=== PATIENT | male | born 1950 | race Caucasian/White ===

== ENCOUNTER 2024-10-03 11:27 | Outpatient (CLI) | payer MEDICARE, SELFPAY ==
--- NOTE | ~2024-10-03 | CT_ITS ---
EXAMINATION: CT lumbar spine wo con DATE: 10/03/2024 11:59 INDICATION: Lumbar radiculopathy. TECHNIQUE: Computed tomography (CT) of the lumbar spine was performed without intravenous contrast. A utomated exposure control and iterative reconstruction technique were employed. The dose-length produ ct was 690.44 mGy-cm. COMPARISON: None FINDINGS: There is 11 degrees levoscoliosis of lumbar spine. There is a chronic compression fracture of L5 with less than 1/5 loss of height. There is mildly decreased disc height at L3-L4 and L4-L5 and severely decreased disc height at L5-S1. There is interbody fusion at L5-S1. The following disc leve ls are specifically discussed: L1-L2: The disc does not extend beyond the endplate margin. There is moderate right and mild left fac et joint osteoarthritis. There is no neural foraminal stenosis. There is no central canal stenosis. L2-L3: The disc is bulging. There is severe bilateral facet joint osteoarthritis. There is mild bilat eral neural foraminal stenosis. There is mild central canal stenosis. L3-L4: The disc is bulging. There is severe bilateral facet joint osteoarthritis. There is mild bilat eral neural foraminal stenosis. There is mild central canal stenosis. L4-L5: The disc is bulging. There is severe bilateral facet joint osteoarthritis. There is mild bilat eral neural foraminal stenosis. There is mild central canal stenosis. L5-S1: The disc is bulging. There is severe bilateral facet joint osteoarthritis. There is mild bilat eral neural foraminal stenosis. There is mild central canal stenosis. IMPRESSION: 1. Mild lumbar spondylosis. 2. Lumbar levoscoliosis. Reviewed, dictated and finalized at location A. ICAL DATA ASSISTANT
--- NOTE | ~2024-10-03 | XR_ITS ---
XR hip RT min 2V Ordering provider: Shaneka Barajas, MECHANICAL PENCILS ASSEMBLER-C History: . No injury right hip pain for 5 weeks . Comparison: None. FINDINGS: BONES: No acute fracture or dislocation. HIP JOINT SPACES: Normal. SACROILIAC JOINT SPACES/LUMBAR SPINE: The sacroiliac joint spaces shows sacroiliitis. Mild degenerati ve changes of the visualized lower lumbar spine. PUBIC SYMPHYSIS: Normal. SOFT TISSUES: Normal. IMPRESSION: No acute osseous abnormality pelvis and right hip. Reviewed, dictated and finalized at location A. TTER
== END 2024-10-03 11:28 | disposition home or self-care (01) ==
LOC: MICIMG 11:28
PROVIDERS: PCP Nurse Practitioner Family; Visit Provider Nurse Practitioner Family
DX: M43.06 Spondylolysis, lumbar region (principal); M41.86 Other forms of scoliosis, lumbar region; M25.551 Pain in right hip
CPT/HCPCS: 72131; 73502

== ENCOUNTER 2025-01-19 12:08 | Outpatient (CLI) | payer MEDICARE, SELFPAY ==
[2025-01-19 12:59] LABS: Basophils Absolute Auto 0.1 K/mm3 (0.0-0.1); Basophils Percent Auto 0.8 % (0.2-1.2); Eosinophils Absolute Auto 0.5 K/mm3 (0-0.3); Eosinophils Percent Auto 7.1 % (0-4.4); Hematocrit 39.6 % (42.0-52.0); Hemoglobin 12.9 g/dL (14.0-18.0); Immature Granulocyte Absolute 0.03 K/mm3 (0.00-0.031); Immature Granulocyte Percent A 0.4 % (0-0.5); Lymphocytes Absolute Auto 2.15 K/mm3 (0.9-3.2); Lymphocytes Percent Auto 29.4 % (18.3-44.2); Mean Corpuscular HGB Conc 32.6 g/dl (32-36); Mean Corpuscular Volume 98.3 fl (80-100); Mean Platelet Volume 10.7 fl (7.4-10.4); Monocytes Absolute Auto 0.8 K/mm3 (0.1-0.6); Monocytes Percent Auto 10.3 % (2.6-8.5); Neutrophils Absolute Auto 3.8 K/mm3 (1.3-6.7); Platelet Count Result 163 k/mm3 (150-375); Red Blood Count 4.03 M/mm3 (4.6-6.20); Red Cell Distribution Width 15.3 % (11.5-14.5); White Blood Count 7.3 K/mm3 (4.5-10.0)
[2025-01-19 13:08] LABS: Add Urine Microscopic? NO; Appearance Urine Clear (Clear); Bilirubin Urine Negative (Negative); Blood Urine Negative (Negative); Color Urine Yellow (Yellow); Glucose Urine UA 3+ mg/dL (Negative); Ketones Urine Negative (Negative); Leukocyte Esterase Ur Negative LEU/UL (Negative); Nitrate Urine Negative (Negative); Protein Urine Negative (Negative); Specific Grav Ur 1.021 (1.001-1.035); Urobilinogen Urine 0.2 mg/dL (<2.0); pH Urine 5.5 (5.0-9.0)
[2025-01-19 13:09] LABS: Hemoglobin A1C 4.9 % (<5.7)
[2025-01-19 13:17] LABS: Alanine Aminotransferase 14 U/L (6-50); Alkaline Phosphatase 62 U/L (38-126); Anion Gap 6 mmol/L (4-12); Aspartate Amino Transferase 13 U/L (17-59); Bilirubin,Total 0.8 mg/dL (0.2-1.3); Blood Urea Nitrogen 37 mg/dL (9-20); Calcium 9.7 mg/dL (8.4-10.2); Carbon Dioxide 38 mmol/L (22-30); Chloride 95 mmol/L (98-107); Estimated Glomerular Filt Rate 25; Glucose 90 mg/dL (65-110); Magnesium 1.3 mg/dL (1.6-2.3); Potassium 3.7 mmol/L (3.4-5.0); Sodium 139 mmol/L (137-145)
[2025-01-19 13:26] LABS: Parathyroid Intact 18.4 pg/mL (14.5-75.2)
[2025-01-19 13:26] LABS: NT Pro B Type Natriuretic Pept 520 pg/mL (19.9-100)
[2025-01-19 13:39] LABS: Vitamin D 25 Hydroxy 77.6 ng/mL
[2025-01-19 13:40] LABS: Creatinine Urine 164.3 mg/dL
[2025-01-19 13:45] LABS: MALB Creatinine Ratio 3.9 mg/g (0-30); Microalbumin Urine Random 6.4 mg/L (0-16.7)
[2025-01-19 13:48] LABS: Prostate Specific Antigen 11.6 ng/mL (< OR = 4.0)
--- OUTSIDE RECORDS SUMMARY | 2025-01-19 13:55 | XMS_ITS | Patient Health Record ---
Author Organization [facility] Address [address] [facility] [address] [place] [address] Care Team Providers Care Heating Engineer Name Role Phone Cooper Pena Unavailable [phone] REASON FOR REFERRAL No Information MEDICATIONS Medication SIG (Take, Route, Fr equency, Duration) Notes Start Date End Date Status Calcitriol 0.25 MCG TAKE 1 CAPSULE BY [place] [facility] TWICE DAILY for 90 Active Allopurinol 300 MG 2 tablet Orally Once a day for 90 days 04/26/2024 04/21/2025 Active PROBLEMS Problem Type ICD Code Onset Dates Problem Status W/U Status Risk SNOMED Code Notes Problem Anemia, unspecified (D64.9) Active confirmed Anemia (751296559) Problem Hypothyroidism, unspecified (E03.9) Active confirmed Hypothyroidism (76026894) Problem Secondary hyperparathyroid ism, not elsewhere classified (E21.1) Active confirmed Secondary hyperparathyroidism (88412629) Problem Vitamin D deficiency, unspecified (E55.9) Active confirmed Vitamin D defic iency (77745698) Problem Heart failure, unspecified (I50.9) Active confirmed Heart failure (06660538) Problem Chronic kidney disease, stage 4 (severe) (N18.4) Active confirmed Chronic kid sergei disease stage 4 (195337979) Problem Renal osteodystrophy (N25.0) Active confirmed Renal osteodyst rophy (98570493) Problem Acquired absence of kidney (Z90.5) Active confirmed Absent kidney (433390336) Problem Essential hypertension (I10) Active confirmed Essential hypertension (70637779) Problem Chronic kidney disease, stage 3a (N18.31) Active confirmed Chronic kidney disease stage 3A (disorder) (272976717) Encounters Encounter Location Date Provider Diagnosis [facility] [address] [facility] [address] [place] [address] 02/05/2024 Cooper Pena Chronic kidney disea se, stage 3a N18.31 ; Anemia, unspecified D64.9 ; Heart failure, unspecified I50.9 ; Renal osteodystrophy N25.0 ; Secondary hyperparathyroidism, not elsewhere classified E21.1 and Vitamin D deficiency, unspecified E55.9 [facility] [address] [place] [address] 04/22/2024 Cooper Pena Chronic kidney disea se, stage 3a N18.31 ; Anemia, unspecified D64.9 ; Heart failure, unspecified I50.9 ; Renal osteodystrophy N25.0 ; Secondary hyperparathyroidism, not elsewhere classified E21.1 and Vitamin D deficiency, unspecified E55.9 [facility] [address] [place] [address] 07/08/2024 Cooper Pena Anemia, unspecified D64.9 ; Essential hypertension I10 ; Hypothyroidism, unspecified E03.9 ; Renal osteodystrophy N25.0 ; Vitamin D deficiency, unspecified E55.9 ; Heart failure, unspecified I50.9 ; Secondary hyperparathyroidism, not elsewhere classified E21.1 and Chronic kidney disease, stage 4 (severe) N18.4 [facility] [address] [place] [address] 08/26/2024 Cooper Pena Anemia, unspecified D64.9 ; Chronic kidney disease, stage 4 (severe) N18.4 ; Heart failure, unspecified I50.9 ; Renal osteodystrophy N25.0 ; Secondary hyperparathyroidism, not elsewhere classified E21.1 ; Vitamin D deficiency, unspecified E55.9 ; Essential hypertension I10 and Hypothyroidism, unspecified E03.9 [facility] [address] [place] [address] 11/25/2024 Cooper Pena Chronic kidney disea se, stage 4 (severe) N18.4 ; Elevated prostate specific antigen (PSA) R97.20 ; Essential hypertension I10 ; Renal osteodystrophy N25.0 ; Secondary hyperparathyroidism, not elsewhere classified E21.1 ; Abnormal results of thyroid function studies R94.6 and Acquired absence of kidney Z90.5 [facility] [address] [place] [address] 04/22/2024 Cooper Pena [place] [facility] [address] [place] [address] 04/26/2024 Cooper Pena ASSESSMENTS Encounter Date Diagnosis Assessment Notes Treatment Notes Treatment Clinical Notes Section Notes 02/05/2024 Chronic kidney disease, stage 3a (ICD-10 - N18.31) 04/22/2024 Chronic kidney disease, stage 3a (ICD-10 - N18.31) 07/08/2024 Anemia, unspecified (ICD-10 - D64.9) 08/26/2024 Anemia, unspecified (ICD-10 - D64.9) 08/26/2024 Chronic kidney disease, stage 4 (severe) (ICD-10 - N18.4) 11/25/2024 Chronic kidney disease, stage 4 (severe) (ICD-10 - N18.4) 11/25/2024 Elevated prostate specific antigen (PSA) (ICD-10 - R97.20) 11/25/2024 Essential hypertension (ICD-10 - I10) 08/26/2024 Heart failure, unspecified (ICD-10 - I50.9) 07/08/2024 Essential hypertension (ICD-10 - I10) 04/22/2024 Anemia, unspecified (ICD-10 - D64.9) 02/05/2024 Anemia, unspecified (ICD-10 - D64.9) 02/05/2024 Heart failure, unspecified (ICD-10 - I50.9) 07/08/2024 Hypothyroidism, unspecified (ICD-10 - E03.9) 04/22/2024 Heart failure, unspecified (ICD-10 - I50.9) 11/25/2024 Renal osteodystrophy (ICD-10 - N25.0) 08/26/2024 Renal osteodystrophy (ICD-10 - N25.0) 08/26/2024 Secondary hyperparathyroidism , not elsewhere classified (ICD-10 - E21.1) 11/25/2024 Secondary hyperparathyroidism , not elsewhere classified (ICD-10 - E21.1) 04/22/2024 Renal osteodystrophy (ICD-10 - N25.0) 07/08/2024 Renal osteodystrophy (ICD-10 - N25.0) 02/05/2024 Renal osteodystrophy (ICD-10 - N25.0) 02/05/2024 Secondary hyperparathyroidism , not elsewhere classified (ICD-10 - E21.1) 07/08/2024 Vitamin D deficiency, unspecified (ICD-10 - E55.9) 04/22/2024 Secondary hyperparathyroidism , not elsewhere classified (ICD-10 - E21.1) 08/26/2024 Vitamin D deficiency, unspecified (ICD-10 - E55.9) 11/25/2024 Abnormal results of thyroid function studies (ICD-10 - R94.6) 11/25/2024 Acquired absence of kidney (ICD-10 - Z90.5) 08/26/2024 Essential hypertension (ICD-10 - I10) 04/22/2024 Vitamin D deficiency, unspecified (ICD-10 - E55.9) 07/08/2024 Heart failure, unspecified (ICD-10 - I50.9) 02/05/2024 Vitamin D deficiency, unspecified (ICD-10 - E55.9) 08/26/2024 Hypothyroidism, unspecified (ICD-10 - E03.9) 07/08/2024 Secondary hyperparathyroidism , not elsewhere classified (ICD-10 - E21.1) 07/08/2024 Chronic kidney disease, stage 4 (severe) (ICD-10 - N18.4) PLAN OF TREATMENT Next Appt Details Provider Name:Cooper Pena , 01/27/2025 12:45:00 PM, [address] [facility] [address], [address],
--- OUTSIDE RECORDS SUMMARY | 2025-01-19 13:55 | XMS_ITS | Referral Summary ---
Author Organization [facility] Address [address] [place] [address] Care Team Providers Care Sewage Plant Attendant Name Role Phone Unavailable Primary Care Provider Unavailabl e Source Comments [facility],non-owned Affiliates and Associated Physician Practices is amultiple site organization consisting of ambulatory clinics and hospital sitesin [place], [place], [place] and [place]. This disclosure is being madepursuant to the Care Everywhere program and may not contain all information available regarding this patient. Last updated 18.[facility] [place] Active Problems Problem Noted Date Diagnosed Date Elevated prostate specific antigen (PSA) 016 Social History Tobacco Use Types Packs/Day Years Used Date Smoking Tobacco: Never Alcohol Use Standard Drinks/Week Comments Yes 0 (1 standard drink = 0.6 oz pur e alcohol) Sex and Gender Information Value Date Recorded Sex Assigned at Not on file Gender Identity Not on file Sexual Orientation Not on file Last Filed Vital Signs Vital Sign Reading Time Taken Comments Blood Pressure 145/95 05/26/2016 12:04 PM CDT Pulse 91 05/26/2016 12:04 PM CDT Temperature 36.7 C (98.1 F) 05/26/2016 12:04 PM CDT Respiratory Rate - - Oxygen Saturation 97% 05/26/2016 12:04 PM CDT Inhaled Oxygen Concentration - - Weight 88.3 kg (194 lb 9.6 oz) 05/26/2016 12:04 PM CDT Height 180.3 cm (5' 11 ) 05/26/2016 12:04 PM CDT Body Mass Index 27.14 05/26/2016 12:04 PM CDT Plan of Treatment Not on file
--- OUTSIDE RECORDS SUMMARY | 2025-01-19 13:55 | XMS_ITS ---
Author Organization [facility] Address [address] [place] [address] Care Team Providers Care Heavy Equipment Service Manager Name Role Phone JeanDianaCooper Unavailable [phone] MEDICATIONS Medication SIG (Take, Route, Fr equency, Duration) Notes Start Date End Date Status Calcitriol 0.25 MCG TAKE 1 CAPSULE BY [facility] TWICE DAILY for 90 Active Allopurinol 300 MG 2 tablet Orally Once a day for 90 days 04/26/2024 04/21/2025 Active Allopurinol 100 MG 1 tablet Orally Once a day for 90 day(s) 04/22/2024 01/17/2025 Active Encounters Encounter Location Date Provider Diagnosis [facility] [place] [facility] [address] [place] [address] 08/26/2024 Cooper Pena Anemia, unspecified D64.9 ; Chronic kidney disease, stage 4 (severe) N18.4 ; Heart failure, unspecified I50.9 ; Renal osteodystrophy N25.0 ; Secondary hyperparathyroidism, not elsewhere classified E21.1 ; Vitamin D deficiency, unspecified E55.9 ; Essential hypertension I10 and Hypothyroidism, unspecified E03.9 ASSESSMENTS Encounter Date Diagnosis Assessment Notes Treatment [...] I10) 08/26/2024 Hypothyroidism, unspecified (ICD-10 - E03.9) PLAN OF TREATMENT Next Appt Details Provider Name:Cooper Jean , 01/27/2025 12:45:00 PM, 20[address] [facility], [facility], [place], [place], [facility], Progress Notes * ZACK FONTENOTDOB: [birth year] (74 yo M)Acc No.[id number]:08/26/2024 Progress Notes Patient: ZACK FONTENOT Provider: MD PUSHPA, F.A.C.P, F.A.S.N. :1950 Age:73 Y Sex:Male Date:08/26/2024 Address:[address] [place] [address] Subjective: * Chief Complaints: * * Medical History: * Medications: Taking Allopurinol 100 MG Tablet 1 tablet Orally Once a day , stop date 01/17/2025, Taking Allopurinol 300 MG Tablet 2 tablet Orally Once a day , stop date 04/21/2025, Taking Calcitriol 0.25 MCG Capsule TAKE 1 CAPSULE BY MOUTH TWICE DAILY Objective: Assessment: * Assessment: 1. Chronic kidney disease, stage 4 (severe) - N18.4 (Primary) 2. Anemia, unspecified - D64.9 3. Heart failure, unspecified - I50.9 4. Renal osteodystrophy - N25.0 5. Secondary hyperparathyroidism, not elsewhere classified - E21.1 6. Vitamin D deficiency, unspecified - E55.9 7. Essential hypertension - I10 8. Hypothyroidism, unspecified - E03.9 Plan: * Treatment: * Billing Information: * Visit Code: 94556 Office Visit, Est Pt., Level 4. * Procedure Codes: * Sign off status: Pending * Provider: MD PUSHPA, Elise.Beulah.C.P, F.A.S.N. Date: 08/26/2024
--- OUTSIDE RECORDS SUMMARY | 2025-01-19 13:55 | XMS_ITS | Clinical Summary ---
Author Organization [facility] Address [address] [place] [address] Care Team Providers Care Drivers' Cash Clerk Name Role Phone Unavailable Primary Care Provider Unavailabl e Social History Tobacco Use Types Packs/Day Years Used Date Smoking Tobacco: Never Assessed Sex and Gender Information Value Date Recorded Sex Assigned at Not on file Legal Sex Male 7:18 PM CDT Gender Identity Not on file Sexual Orientation Not on file Plan of Treatment Health Maintenance Due Date Last Done Comments Colorectal Cancer Screening Colonoscopy (10 Years) 1950 Hepatitis C 1967 DTaP, Tdap and Td Vaccines ( 1 - Tdap) 1968 Zoster Vaccines (1 of 2) 1999 Pneumococcal Vaccine: 65+ Ye ars (1 of 1 - PCV) 2014 COVID-19 Vaccine ( - 2023-2 5 season) 2024 Influenza Adult (#1) 2024 RSV Immunization or 60+ Years (1 - 1-dose 75+ series) 2024 Meningococcal B Vaccine Aged Out No l onger eligible based on patient's age to complete this topic Meningococcal Vaccine Aged Out No jose cory eligible based on patient's age to complete this topic RSV Immunizations Under 20 Months Aged Out No longer eligible based on patient's age to complete this topic
--- OUTSIDE RECORDS SUMMARY | 2025-01-19 13:55 | XMS_ITS ---
Author Organization [facility] Address [address] [address] [place] [address] Care Team Providers Care Business Solutions Consultant Name Role Phone JeanDianaCooper Unavailable [phone] MEDICATIONS Medication SIG (Take, Route, Fr equency, Duration) Notes Start Date End Date Status Allopurinol 300 MG 2 tablet Orally Once a day for 90 days 04/26/2024 04/21/2025 Active Calcitriol 0.25 MCG TAKE 1 CAPSULE BY [facility] TWICE DAILY for 90 Active Allopurinol 100 MG 1 tablet Orally Once a day for 90 day(s) 04/22/2024 01/17/2025 Active PROBLEMS Problem Type ICD Code Onset Dates Problem Status W/U Status Risk SNOMED Code Notes Problem Acquired absence of kidney (Z90.5) Active confirmed Absent kidney (745505483) Encounters Encounter Location Date Provider Diagnosis [facility] [address] [address] 11/25/2024 Cooper Pena Chronic kidney disea se, stage 4 (severe) N18.4 ; Elevated prostate specific antigen (PSA) R97.20 ; Essential hypertension I10 ; Renal osteodystrophy N25.0 ; Secondary hyperparathyroidism, not elsewhere classified E21.1 ; Abnormal results of thyroid function studies R94.6 and Acquired absence of kidney Z90.5 ASSESSMENTS Encounter Date Diagnosis Assessment Notes Treatment [...] Acquired absence of kidney (ICD-10 - Z90.5) PLAN OF TREATMENT Next Appt Details Provider Name:Cooperjasen Pena , 01/27/2025 12:45:00 PM, [address] [facility] [address], [place], [facility], Progress Notes * ZACK FONTENOTDOB: [birth year] (74 yo M)Acc No.[id number]:11/25/2024 Progress Notes Patient: ZACK FONTENOT Provider: MD PUSHPA, F.A.C.P, F.A.S.N. :1950 Age:74 Y Sex:Male Date:11/25/2024 Address:[address] [place] [address] Subjective: * Chief Complaints: * * Medical [...] stage 4 (severe) - N18.4 (Primary) 2. Elevated prostate specific antigen (PSA) - R97.20 3. Essential hypertension - I10 4. Renal osteodystrophy - N25.0 5. Secondary hyperparathyroidism, not elsewhere classified - E21.1 6. Abnormal results of thyroid function studies - R94.6 7. Acquired absence of kidney - Z90.5 Plan: * Treatment: * Billing Information: * Visit Code: 06839 Office Visit, Est Pt., Level 4. * Procedure Codes: * Sign off status: Pending * Provider: MD PUSHPA, Elise.Beulah.C.P, F.A.S.N. Date: 11/25/2024
--- OUTSIDE RECORDS SUMMARY | 2025-01-19 13:55 | XMS_ITS | Patient Health Summary ---
Author Organization [facility] Address [address] [place] [address] Care Team Providers Care Real Estate Broker Name Role Phone Unavailable Primary Care Provider Unavailabl e Note from [facility],non-owned Affiliates and Associated Physician Practices is amultiple site organization consisting of ambulatory clinics and hospital sitesin [place], [place], [place] and [place]. This disclosure is being madepursuant to the Care Everywhere program and may not contain all information available regarding this patient. Last updated 18.[facility] Active Problems Problem Noted Date Diagnosed Date [...] Mass Index 27.14 05/26/2016 12:04 PM CDT Procedures * LAB HISTORICAL RESULTS-ONBASE(Performed 07/01/2017) * PATHOLOGY/GENETICS HISTORICAL-ONBASE(Performed 05/09/2016) * PSA SERIAL(Performed 03/27/2016) * URINALYSIS REFLEX TO MICROSCOPIC NO CULTURE(Performed 03/27/2016) * URINALYSIS AUTO - POINT OF CARE (AMB) [facility](Performed 03/27/2016) * LAB HISTORICAL RESULTS-ONBASE(Performed 12/26/2015) * LAB HISTORICAL RESULTS-ONBASE(Performed 12/26/2015) * LAB HISTORICAL RESULTS-ONBASE(Performed 12/26/2015) * DERMATOPATHOLOGY(Performed 12/04/2014) * LAB HISTORICAL RESULTS-ONBASE(Performed 10/11/2014) * LAB HISTORICAL RESULTS-ONBASE(Performed 10/11/2014) Results * LAB HISTORICAL RESULTS-ONBASE (07/01/2017) Only the most recent of6 resultswithin the time period is included. 07/01/2017 Historical Provider LAB - CHEMISTRY O PARI Performing Organization Address [facility] Co de Phone Number [address] * PATHOLOGY/GENETICS HISTORICAL-ONBASE (05/09/2016) 05/09/2016 Narrative [facility] - 05/14/2016 12:22 PM CDT Historical Provider LAB - CHEMISTRY Ninfa YAÑEZ Performing Organization Address [facility] Co de Phone Number [address] * (ABNORMAL) PSA SERIAL (03/27/2016 10:34 AM CDT) Pathologist [facility] PSA Total 7.7(H) 0.0 - 4.0 ng/mL [facility] Blood specimen (specimen) BLOOD SPECIMEN / Unknown 03/27/2016 10:34 AM CDT 03/27/2016 11:28 AM CDT Vannessa Chavez MD LAB - CHEMIS TRY ORDERABLES Performing Organization Address [facility] Co de Phone Number [address] [phone] * (ABNORMAL) URINALYSIS REFLEX TO MICROSCOPIC NO CULTURE (03/27/2016 10:28 AM CDT) Color UA Yellow Straw, Yellow, Colorless, Light Yellow [facility] Clarity UA Clear Clear [facility] Specific [place] UA 1.003 1.001 - 1.030 [facility] pH UA 5.0 5.0 - 8.0 [facility] Protein UA Negative <=20 mg/dL [facility] Glucose UA Negative Negative mg/dL [facility] Ketone UA Negative Negative mg/dL [facility] Bilirubin UA Negative Negative mg/dL [facility] Blood UA Trace(A) Negative [facility] Nitrite UA Negative Negative [facility] Leukocyte Esterase Negative Negative [facility] Urobilinogen UA <2.0 <2.0 mg/dL [facility] RBC UA 1 0 - 8 /HPF [facility] WBC UA <1 0 - 2 /HPF [facility] Mucus UA Rare(A) None /LPF [facility] Hyaline Casts UA 3(H) 0 - 2 /LPF [facility] Urine specimen (specimen) URINE SPECIMEN OBTAINED BY CLEAN CATCH PROCEDURE / Unknown 03/27/2016 10:28 AM CDT 03/27/2016 2:11 PM CDT Vannessa Chavez MD LAB - URINAL YSIS ORDERABLES [address] [phone] * (ABNORMAL) URINALYSIS AUTO - POINT OF CARE (AMB) [facility] (03/27/2016) Glucose UA neg [facility] Bilirubin UA POCT neg [facility] Ketones UA POCT neg [facility] Specific [place] UA 1.015 [facility] Blood Urine POCT 25(A) [facility] pH UA 6.0 [facility] Protein UA neg [facility] Urobilinogen UA 3.5 [facility] Nitrite UA neg [facility] WBC UA neg [facility] Urine specimen (specimen) 03/27/2016 Vannessa Chavez MD LAB - POINT OF CARE ORDERABLES [facility] * PATHOLOGY TISSUE FOR DERMATOLOGY (12/04/2014 12:00 AM RELIGIOUS HEALER) Result CASE: [id number] PATIENT: SEGUNDO NUR PATHOLOGIC DIAGNOSIS: A. Right upper back: PIGMENTED SEBORRHEIC KERATOSIS B. Left lower back: SEBORRHEIC KERATOSIS CLINICAL DATA: A-B: None provided. GROSS DESCRIPTION: A: Received is one formalin filled container labeled with the patient's name and designated right upper back. The specimen consists of a shave biopsy measuring 6x4x1 mm. Jar 0. B: Received is one formalin filled container labeled with the patient's name and designated left lower back. The specimen consists of a shave biopsy measuring 10x6x2 mm. Jar 0. MICROSCOPIC DESCRIPTION: SPECIMEN A: Sections show an acanthotic lesion composed of relatively uniform keratinocytes. There is hyperkeratosis and pseudo horn cysts. Pigment is present in the keratinocytes composing this tumor. SPECIMEN B: Sections show an acanthotic lesion composed of relatively uniform keratinocytes. There is hyperkeratosis and pseudo horn cysts formation. Electronically signed out by Itzel Albrecht M.D. 12/06/2014 1:39:43PM [facility] Comment: Performed at: Dermatopathology Laboratory [facility] - Department of Dermatology [address] [place] [address] [place] [address] Phone number: [phone] FAX: [phone] 12/04/2014 12/05/2014 Neftali Urena MD LAB - PATHOLOGY/CYTO LOGY ORDERABLES [facility] D[facility] [address] [place] [address]. 5th Floor Lab [address] [phone]
--- OUTSIDE RECORDS SUMMARY | 2025-01-19 13:55 | XMS_ITS | Clinical Summary ---
Author Organization [facility] [employer] Address [address] [place] [address] Care Team Providers Care Whiteprinting Machine Operator Name Role Phone Unavailable Primary Care Provider Unavailabl e Source Comments [facility] [employer],non-owned Affiliates and Associated Physician Practices is amultiple site organization consisting of ambulatory clinics and hospital sitesin [place], [place], [place] and [place]. This disclosure is being madepursuant to the Care Everywhere program and may not contain all information available regarding this patient. Last updated 18.[facility] [employer] Active Problems Problem Noted Date Diagnosed Date Elevated prostate specific antigen (PSA) 016 Family History Medical History Relation Name Comments Cancer Mother Relation Name Status Comments Mother Social History Tobacco Use Types Packs/Day Years [...] 05/26/2016 12:04 PM CDT Plan of Treatment Health Maintenance Due Date Last Done Comments COLOGUARD (AGES 45-75) - COL ON CA SCREENING 1950 COLON MONITORING 1950 COLONOSCOPY - COLON CA SCREENING 1949 CT COLONOGRAPHY - COLON CA SCREENING 1950 Colorectal Cancer Screening 1950 FIT - COLON CA SCREENING 1950 FLEX SIG - COLON CA SCREENING 1950 LIPID TESTING 1950 HEPATITIS C SCREENING 10/15/1967 DTAP/TDAP/TD VACCINES (1 - Tdap) 1968 PNEUMOCOCCAL VACCINE 50+ (1 of 1 - PCV) 1999 ZOSTER VACCINE (1 of 2) 1999 COVID-19 VACCINE ( - 2023-2 5 season) 2024 INFLUENZA VACCINE (#1) 2024 Respiratory Syncytial Virus (RSV) Vaccine Pt: or over 60 yrs (1 - 1-dose 75+ series) 2024 DEPRESSION SCREENING 11/09/2024 HEPATITIS B VACCINE Aged Out No longe r eligible based on patient's age to complete this topic HIB VACCINE Aged Out No longer eligi ble based on patient's age to complete this topic HPV VACCINE Aged Out No longer eligi ble based on patient's age to complete this topic MENINGOCOCCAL (Group B) VACC INE SHARED DECISION-MAKING Aged Out No longer eligibl e based on patient's age to complete this topic MENINGOCOCCAL GROUPS A/C/Y/W VACCINE Aged Out No longer eligible b ased on patient's age to complete this topic
--- OUTSIDE RECORDS SUMMARY | 2025-01-19 13:56 | XMS_ITS | CONTINUITY OF CARE DOCUMENT ---
Author Name amy reyes Address Unknown Organization [facility] Address [address] [place] [address] Phone [phone] Care Team Providers Care Clinical Provider Trainer Name Role Phone Virgilio Mckeon MD Unavailable [phone] Adrian Thakur MD Unavailable [phone] Adrian Thakur MD Unavailable PROBLEMS Condition Status Date Provider Notes S/P Dual AICD - Biotronik ( MRI SAFE) active Paula Lindsay Postprocedural hematoma of skin and subcutaneous tissue following other procedure active Ayala Antoine IRON DEFICIENCY active Lucian Mayen MD Valvular heart disease active Lucian Mayen MD Cardiomyopathy active Lucian Mayen MD Renal cysts, bilateral active Lucian Mayen MD Hyperlipidemia;NEG CRP active Lucian Mayen MD Anemia, B12 deficiency active Lucian Mayen MD nml folate Exposure to SARS-associated coronavirus;had vaccine;neg swab active Lucian Mayen MD Renal disease, chronic, mild active Lucian Mayen MD neg uactr on jardicne coud not zacarias low dose bee and neg us and duplex Hypothyroidism active Lucian Mayen MD HTN essential active Lucian Mayen MD ANEMIA, IRON DEFICIENCY; active Lucian cook MD LIVER cyst active Lucian Mayen MD Screening active Lucian Mayen MD neg solis tid Hemiblock, left anterior active Lucian cook MD Prostate cancer active Lucian Mayen MD on med rx 19 Renal cell cancer active Lucian Mayen MD p arial nephemy 19 Obesity active Lucian Mayen MD Syncope active Nicolas Randal BACK PAIN;CHRONIC active Lucian Mayen MD GERD active Lucian Mayen MD Neuropathy active Lucian Mayen MD neg rpr and low b`12 CHF, left active Lucian Mayen MD coudl no t otl altace 1.25 Abnormal blood chemistry completed - Lucian álvarez MD Other retirement (current) drug therapy completed - Lucian Mayen MD Vitamin D deficiency active Lucian Cheney Shortness of breath active Nicolas Tee Dissection of iliac artery active Selena Ventimiglia COPRA PROCESSOR Dizziness active Farooq Hare Cardiology examination active Farooq Hare ENCOUNTERS Date Type Provider Location Encounter Diag nosis - In-person encounter Office Visit Virgilio Mckeon MD [facility] Cardiology examination - In-person encounter Office Visit Virgilio Mckeon MD [facility] Dizziness - In-person encounter Office Visit Virgilio Mckeon MD [facility] - In-person encounter Office Visit Virgilio Mckeon MD [facility] - In-person encounter Office Visit Virgilio Mckeon MD [facility] Dissection of iliac artery - In-person encounter Office Visit Virgilio Mckeon MD [facility] SyncopeShortness of breath - In-person encounter Office Visit Lucian Mayen MD [facility] - In-person encounter Office Visit Lucian aMyen MD [facility] Renal disease, chronic, mildObesitySyncopeCHF, leftAbnormal blood chemistryOther retirement (current) drug therapyVitamin D deficiency - In-person encounter Office Visit Lucian Mayen MD [facility] Exposure to SARS-associated coronavirus;had vaccine;neg swabRenal disease, chronic, mildHypothyroidismHTN essentialANEMIA, IRON DEFICIENCY;LIVER cystScreeningHemiblock, left anteriorProstate cancerRenal cell cancerObesityBACK PAIN;CHRONICGERDNeuropathy VITAL SIGNS Date Observation Value Provider Body Mass Index (Ratio) 27.12 kg/m2 Jose Hare blood pressure, diastolic 80 mm[Hg] Johanna thompsoncathleenfrancisco javier Rivera blood pressure, systolic 107 mm[Hg] Johannadonna cathleenfrancisco javier Rivera oxygen saturation, oximetry 95 % Shondafrancisco javier Rivera [facility] rate 76 /[facility] respiratory rate E&M 12 /min [facility]] weight E&M 189 [lb_av] [facility]] height E&M 70 [in_i] [facility] blood pressure, cuff size regular Johanna Rivera Body Mass Index (Ratio) 28.12 kg/m2 Jose Hare blood pressure, diastolic 75 mm[Hg] Johanna Colón blood pressure, systolic 133 mm[Hg] Any jacek Colón pulse rate 85 /min Emilee Colón oxygen saturation, oximetry 97 % Emilee Colón weight E&M 196 [lb_av] Emilee Colón blood pressure, cuff size large Johanna Colón height E&M 70 [in_i] Emilee Colón Body Mass Index (Ratio) 28.26 kg/m2 Braden Rushing blood pressure, cuff size regular Tonie Richardson blood pressure, diastolic 78 mm[Hg] [facility] blood pressure, systolic 116 mm[Hg] [facility] oxygen saturation, oximetry 98 % [facility] pulse rate 84 /min [facility] respiratory rate E&M 12 /min [facility] weight E&M 197 [lb_av] [facility] height E&M 70 [in_i] [facility] Body Mass Index (Ratio) 29.41 kg/m2 [facility] [address] pulse rate 15 /min [facility] blood pressure, cuff size regular [facility] blood pressure, diastolic 85 mm[Hg] [facility] blood pressure, systolic 137 mm[Hg] [facility] respiratory rate E&M 16 /min [facility] oxygen saturation, oximetry 95 % [facility] weight E&M 205 [lb_av] [facility] height E&M 70 [in_i] [facility] Body Mass Index (Ratio) 28.84 kg/m2 [facility] [address] blood pressure, diastolic 83 mm[Hg] Frida nkLogic blood pressure, systolic 133 mm[Hg] Christine kLogic blood pressure, cuff size regular rret blood pressure, diastolic 83 mm[Hg] Joseph rret blood pressure, systolic 133 mm[Hg] Jar ret pulse rate 73 /min [facility] y respiratory rate E&M 12 /min [facility] oxygen saturation, oximetry 97 % [facility] weight E&M 201 [lb_av] [facility] y height E&M 70 [in_i] [facility] y Body Mass Index (Ratio) 28.98 kg/m2 Ban machado Randal blood pressure, diastolic 78 mm[Hg] Frida nkLogic blood pressure, systolic 133 mm[Hg] Christine kLogic blood pressure, cuff size regular Ja rret blood pressure, diastolic 78 mm[Hg] Ja rret blood pressure, systolic 133 mm[Hg] Jar ret pulse rate 92 /min [facility] oxygen saturation, oximetry 98 % [facility] respiratory rate E&M 12 /min [facility] weight E&M 202 [lb_av] [facility] y height E&M 70 [in_i] [facility] y Body Mass Index (Ratio) 29.84 kg/m2 Murray Mayen MD blood pressure, diastolic 85 mm[Hg] Ut misael Yung blood pressure, systolic 140 mm[Hg] [facility] brina Yung oxygen saturation, oximetry 97 % Deja Yung pulse rate 80 /min Deja cheney respiratory rate E&M 16 /min Angeles Yung blood pressure, cuff size large Ut misael Yung weight E&M 208 [lb_av] Deja cheney height E&M 70 [in_i] Deja cheney Body Mass Index (Ratio) 30.04 kg/m2 Murray Mayen MD blood pressure, diastolic 91 mm[Hg] [facility] Mirza blood pressure, systolic 140 mm[Hg] Amber Mirza oxygen saturation, oximetry 97 % Tresa Mirza pulse rate 89 /min Tresa Mirza respiratory rate E&M 16 /min Tresa sheets weight E&M 209.4 [lb_av] Tresa Hermes height E&M 70 [in_i] Tresa Hermes Body Mass Index (Ratio) 29.84 kg/m2 Murray Mayen MD blood pressure, diastolic 73 mm[Hg] Bethanie douglas Dilshad blood pressure, systolic 136 mm[Hg] [facility] brina Dilshad oxygen saturation, oximetry 96 % Deja Yung pulse rate 80 /min Deja cheney weight E&M 208 [lb_av] Deja cheney height E&M 70 [in_i] Deja cheney respiratory rate E&M 16 /min Angeles Yung blood pressure, cuff size large Ut misael Yung ALLERGIES No Known Drug Allergies HISTORY OF MEDICATION USE Medication Status Instructions Dates Provider Indications Com ments FeroSul 325 mg (65 mg iron) tablet active TAKE 1 TABLET BY MOUTH ONCE DAILY 12/08 Adriane Hobbs Percocet 5 mg-325 mg tablet active 1 tablet every six hours as needed for pain Martha Moura RN Jardiance 10 mg tablet active TAKE 1 TABLET BY MOUTH EVERY DAY 11/23 Suzanne Barrios Percocet 5-325 mg tablet active 1 tablet every six hours as needed for pain 12/05 Virgilio Mckeon MD cephalexin 500 mg tablet active Take 1 tablet by mouth four times a day 12/05 Martha Moura RN FeroSul 325 mg (65 mg iron) tablet completed Take 1 tablet by mouth once a day 11/29 - 12/08 Adriane Hobbs cyanocobalamin (vitamin B-12) 1,000 mcg tablet active TAKE 1 TABLET BY MOUTH EVERY DAY Shlomo Valenzuela atorvastatin 20 mg tablet active TAKE 1 TABLET BY MOUTH EVERY DAY Kylijacek Valenzuela Entresto 24-26 mg tablet completed Take 1 tablet by mouth twice a day - 12/26 Virgilio Mckeon MD carvedilol 3.125 mg tablet active TAKE 1 TABLET BY MOUTH TWICE DAILY WITH MEALS 08/05 Adriane Hobbs Coreg 3.125 mg tablet completed Take 1 tab let by mouth twice a day 03/06 - 08/05 Virgilio Mckeon MD Aldactone 25 mg tablet completed 1/2 tablet by mouth once a day 03/06 - 08/05 Virgilio Mckeon MD Entresto 24-26 mg tablet completed TAKE 1 TABLET BY MOUTH TWICE A DAY 03/06 - 08/05 Virgilio Mckeon MD hydrochlorothiazide 12.5 mg tablet completed TAKE 1 TABLET BY MOUTH DAILY - 03/06 Mauricio Romano NP ergocalciferol (vitamin D2) 1,250 mcg (50,000 unit) capsule active TAKE 1 CAPSULE BY MOUTH 1 TIME A WEEK Lucian Mayen MD hydrocodone-acetamino phen 7.5-325 mg tablet active Lucian Mayen MD calcitriol 0.25 mcg capsule active Lucian Mayen MD ramipril 1.25 mg capsule completed TAKE 1 CAPSULE BY MOUTH DAILY - Lucian Mayen MD cyanocobalamin (vitamin B-12) 1,000 mcg tablet completed 1 tablet by mouth once a day - Priyanka Lee FeroSul 325 mg (65 mg iron) tablet completed TAKE ONE TABLET BY MOUTH ONCE DAILY - 11/29 Adriane Hobbs Jardiance 10 mg tablet completed Take 1 tablet by mouth once a day 08/06 - 11/23 Jefferson Taylor allopurinol 300 mg tablet active Lucian Mayen MD tamsulosin 0.4 mg capsule active Lucian Mayen MD finasteride 5 mg tablet completed TAKE 1 TABLET BY MOUTH EVERY DAY - Lucian Mayen MD omeprazole 20 mg capsule,delayed release(DR/EC) active Lucian Mayen MD levothyroxine 100 mcg tablet active Lucian Mayen MD amlodipine 5 mg tablet completed - 03/06 Mauricio Romano RADIOLOGICAL EQUIPMENT SPECIALIST SOCIAL HISTORY Date Observation Value Provider drug use no Virgilio Mckeon MD alcohol use no Virgilio Mckeon MD smoking status Never smoker Virgilio Cheney drug use no Emilee Eldon alcohol use no Emilee Eldon smoking status Never smoker Emileejacek Colón drug use no Payal Richardson alcohol use no [facility] smoking status Never smoker [facility] drug use no [facility] alcohol use no [facility] smoking status Never smoker [facility] drug use no Selena Ventimig keira [facility] alcohol use no Selena Ventimig keira [facility] smoking status Never smoker Selena Ventim iglia [facility] smoking status Never smoker Nicolas riojas social history reviewed E&M revi ewed - no changes required Nicolas Tee social history E&M S moking History: Bethany maher has never smoked. Mauricio Romano RADIOLOGICAL EQUIPMENT SPECIALIST drug use no Mauricio Romano RADIOLOGICAL EQUIPMENT SPECIALIST alcohol use yes Mauricio Romano NP smoking status Never smoker Mauricio Poe i, NP social history E&M S moking History: Bethany maher has never smoked. Lucian Mayen MD social history reviewed E&M revi ewed - no changes required Lucian Mayen MD smoking status Never smoker Tresa Mirza social history E&M S moking History: Bethany maher has never smoked. Lucian Mayen MD social history reviewed E&M revi ewed - no changes required Lucian Mayen MD smoking status Never smoker Deaj Jensen and INSURANCE PROVIDERS Payer name Policy type / Coverage type Radha red republican ID [facility] COMPLETE [id number] (PPO C-SNP) Commercial insurance company [id number] [facility] Medicaid 1 [id number] ADVANCE DIRECTIVES Name Date DISCUSSED - NO DECISION MADE TREATMENT PLAN Date Name Performer [id number],C,N o further episodes since last visit N SVT on episodes on tele W ill plan ICD at one month f/u if patient and daughter agreeable [facility] [id number],C,E gFR 31. discussed and reviewed meds with Dr. Mckeon before initiating Entrest [facility] [id number],C,B P 133/83 today A dd Entresto H is updated medication list for this problem includes: Carvedilol 3.125 Mg Tablet (Carvedilol) ..... Take 1 tablet by mouth twice daily with meals [facility] [id number],C,L DL 132 W ill add statin H is updated medication list for this problem includes: Lipitor 20 Mg Tablet (Atorvastatin) ..... Take 1 tablet by mouth every day [facility] [id number],C,N o pain with ambulation N o numbness or tingling W ill update arterial duplex for follow up [facility] [id number],C,E F of 20% per cath and echo in 12/2022 H e wore tele monitor that showed episodes of NSVT H ave recommended ICD given CMP, NSVT, and syncope H as been discussed with patient and daughter T chachojose wish to discuss further W ill continue BB and Jardiance. W ill add Entresto today. H is updated medication list for this problem includes: Entresto 24-26 Mg Tablet (Sacubitril-valsartan) ..... Take 1 tablet by mouth twice a day Carvedilol 3.125 Mg Tablet (Carvedilol) ..... Take 1 tablet by mouth twice daily with meals [facility] [id number],SNicloas [id number],S, C ontcristofer to follow up with oncology at [place]. Currently in remission. Nicolas Tee [id number],C,echo showed E F 20% Nicolas Tee [id number],S, B P today: 133/78 P rior BP: 140/85 (03/06/2023) The following medications were removed from the medication list: Aldactone 25 Mg Tablet (Spironolactone) ..... 1/2 tablet by mouth once a day Coreg 3.125 Mg Tablet (Carvedilol) ..... Take 1 tablet by mouth twice a day His updated medication list for this problem includes: Carvedilol 3.125 Mg Tablet (Carvedilol) ..... Take 1 tablet by mouth twice daily with meals Nicolas Sandovalri [id number],W,P t complains of recurrent syncopal episodes. In addition SOB with minimal exertion and CP. Echo showed EF 20%. We will schedule right and left heart cath, telecentry, and RPM Nicolas Sandovalri [id number],W,P t complains of recurrent syncopal episodes. In addition SOB with minimal exertion and CP. Echo showed EF 20%. We will schedule right and left heart cath, telecentry, and RPM Nicolsa Yanezinari [id number],C,97 Lucian villatoro MD [id number],C,30 Lucian villatoro MD [id number],C,565 Lucian álvarez MD [id number],C,C nayely to follow up with oncology at [place]. Currently in remission. Mauricio Romano NP [id number],C,Continues on Vit D suppplements Mauricio Romano NP [id number],C,M anaged per PCP. H is updated medication list for this problem includes: Levothyroxine 100 Mcg Tablet (Levothyroxine) Mauricio Romano NP [id number],C,Continues on Iron supplements Mauricio Romano NP [id number],C, 3 9 (07/31) Mauricio Romano NP [id number],C, T he following medications were removed from the medication list: Amlodipine 5 Mg Tablet (Amlodipine) Hydrochlorothiazide 12.5 Mg Tablet (Hydrochlorothiazide) ..... Take 1 tablet by mouth daily His updated medication list for this problem includes: Coreg 3.125 Mg Tablet (Carvedilol) ..... Take 1 tablet by mouth twice a day Aldactone 25 Mg Tablet (Spironolactone) ..... 1/2 tablet by mouth once a day BP today: 140/85 P rior BP: 140/91 (11/06/2022) Mauricio Romano NP [id number],C,C onclusions: Echo 01/01 N ormal left ventricular size. Moderate concentric left ventricular hypertrophy. Left v entricular ejection fraction is estimated at 20% T he mitral valve is normal in appearance and function. Mild mitral valve regurgitation. A ortic valve leaflets appear structurally normal. Trace to mild aortic valve regurgitation W ill start Entresto, Coreg and Aldactone. Mauricio Romano NP [id number],C,Not on any co dication currennty Mauricio Romano RADIOLOGICAL EQUIPMENT SPECIALIST [id number],C,C onclusions: Echo 01/01 N ormal left ventricular size. Moderate concentric left ventricular hypertrophy. Left v entricular ejection fraction is estimated at 20 %. T he mitral valve is normal in appearance and function. Mild mitral valve regurgitation. A ortic valve leaflets appear structurally normal. Trace to mild aortic valve regurgitation W ill schedule patient for cardiac cath. W ill start Entresto, Coreg and Aldactone. Mauricio Romano RADIOLOGICAL EQUIPMENT SPECIALIST [id number],C,C onclusions: Echo 12/2022 N ormal left ventricular size. Moderate concentric left ventricular hypertrophy. Left v entricular ejection fraction is estimated at 20 %. T he mitral valve is normal in appearance and function. Mild mitral valve regurgitation. A ortic valve leaflets appear structurally normal. Trace to mild aortic valve regurgitation Mauricio Romano RADIOLOGICAL EQUIPMENT SPECIALIST [id number],C,mild tr and a i and mr Lucian Santajacek CANALES [id number],C,20% Lucian álvarez MD [id number],W, T he following medications were removed from the medication list: Ramipril 1.25 Mg Capsule (Ramipril) ..... Take 1 capsule by mouth daily His updated medication list for this problem includes: Hydrochlorothiazide 12.5 Mg Tablet (Hydrochlorothiazide) ..... Take 1 tablet by mouth daily Amlodipine 5 Mg Tablet (Amlodipine) Hydrochlorothiazide 12.5 Mg Tablet (Hydrochlorothiazide) ..... Take 1 tablet by mouth daily Ramipril 1.25 Mg Capsule (Ramipril) ..... Take 1 capsule by mouth daily Ramipril 1.25 Mg Capsule (Ramipril) ..... Take 1 capsule by mouth daily Amlodipine 5 Mg Tablet (Amlodipine) BP today: 140/91 P rior BP: 136/73 (08/06/2022) Lucian Mayen MD [id number],B, Lucian Serot a [id number],S,down to 205 H janie Mayen MD [id number],B, n eg a1c and uactr, neg [place] Lucian Mayen MD [id number],S, Lucian Serot a [id number],B,39 Lucian Emery shauna [id number],B,up tp date on colon Lucian Mayen MD [id number],B, Lucian Serot a [id number],S, 5 .78 Lucian Mayen MD [id number],S, Lucian Serot a [id number],B, Lucian Serot a [id number],B, Lucian Serot a [id number],C,5.78 Lucian sanchez [id number],C,1350 Lucian sanchez [id number],C,neg a1c and d Lucian Serota [id number],S, Lucian Serot a [id number],S, Lucian Serot a [id number],S, Lucian Serot a [id number],S, Lucian Serot a [id number],S, Lucian Serot a [id number],B, Lucian Serot a [id number],S, Lucian Serot a [id number],B, Lucian Serot a [id number],S, Lucian Serot a [id number],S,neg brfain ct Lucian Serota [id number],S,eng [place] Lucian Serota Cardiology: H e complains of weakness, BP is low. Denies SOB. We will stop entresto due to low BP. Will check labs and obtain a f/u echo. BP today: 107/80 P rior BP: 133/75 (04/20/2024) His updated medication list for this problem includes: Carvedilol 3.125 Mg Tablet (Carvedilol) ..... Take 1 tablet by mouth twice daily with meals Virgilio Mckeon MD Cardiology Farooq Hare Cardiology:Echo show ed EF of 25%. He complains of low energy and is not interested in any clinical trials. We will continue current medications. Farooq Ananya Cardiology:Echo show ed EF of 25%. Pt. wanted to reduce entresto because of dizziness. Now feeling much better on 24-26mg. He complains of low energy and is not interested in any clinical trials. We will continue current medications. Farooq Ananya Cardiology: B P today: 133/75 P rior BP: 116/78 (01/20/2024) His updated medication list for this problem includes: Carvedilol 3.125 Mg Tablet (Carvedilol) ..... Take 1 tablet by mouth twice daily with meals Farooq Hare Cardiology Farooq Lawrence Cardiology: N o pain with ambulation N o numbness or tingling Sonny Dodson Cardiology: H is updated medication list for this problem includes: Omeprazole 20 Mg Capsule,delayed Release(dr/ec) (Omeprazole) Sonny Dodson Cardiology: H is updated medication list for this problem includes: Carvedilol 3.125 Mg Tablet (Carvedilol) ..... Take 1 tablet by mouth twice daily with meals BP today: 116/78 P rior BP: 137/85 (11/11/2023) Sonny Dodson Cardiology: H is updated medication list for this problem includes: Lipitor 20 Mg Tablet (Atorvastatin) ..... Take 1 tablet by mouth every day Sonny Dodson Cardiology:s/p bi-ve ntricular device implantation EF of 20% per cath and echo in 12/2022 H e wore tele monitor that showed episodes of NSVT H ave recommended ICD given CMP, NSVT, and syncope H as been discussed with patient and daughter T cade wish to discuss further W ill continue BB and Jardiance. W ill add Entresto today. H is updated medication list for this problem includes: Entresto 24-26 Mg Tablet (Sacubitril-valsartan) ..... Take 1 tablet by mouth twice a day Carvedilol 3.125 Mg Tablet (Carvedilol) ..... Take 1 tablet by mouth twice daily with meals Sonny Rushing Cardiology [facility] Cardiology: B P today: 137/85 P rior BP: 133/83 (08/24/2023) His updated medication list for this problem includes: Carvedilol 3.125 Mg Tablet (Carvedilol) ..... Take 1 tablet by mouth twice daily with meals [facility] Cardiology: H is updated medication list for this problem includes: Lipitor 20 Mg Tablet (Atorvastatin) ..... Take 1 tablet by mouth every day [facility] Cardiology: N o further episodes since last visit [facility] Cardiology:. Pt is s till very symptomatic CHF class III. [facility] Cardiology:No furthe r episodes since last visit N SVT on episodes on tele W ill plan ICD at one month f/u if patient and daughter agreeable [facility] Cardiology:EgFR 31. discussed and reviewed meds with Dr. Mckeon before initiating Entrest [facility] Cardiology:BP 133/83 today A dd Entresto H is updated medication list for this problem includes: Carvedilol 3.125 Mg Tablet (Carvedilol) ..... Take 1 tablet by mouth twice daily with meals [facility] Cardiology:LDL 132 W ill add statin H is updated medication list for this problem includes: Lipitor 20 Mg Tablet (Atorvastatin) ..... Take 1 tablet by mouth every day [facility] Cardiology:No pain w ith ambulation N o numbness or tingling W ill update arterial duplex for follow up [facility] Cardiology:EF of 20% per cath and echo in 12/2022 H e wore tele monitor that showed episodes of NSVT H ave recommended ICD given CMP, NSVT, and syncope H as been discussed with patient and daughter T chachojose wish to discuss further W ill continue BB and Jardiance. W ill add Entresto today. H is updated medication list for this problem includes: Entresto 24-26 Mg Tablet (Sacubitril-valsartan) ..... Take 1 tablet by mouth twice a day Carvedilol 3.125 Mg Tablet (Carvedilol) ..... Take 1 tablet by mouth twice daily with meals Selena Mckay COPRA PROCESSOR Cardiology [facility] Cardiology: C shakirues to follow up with oncology at [place]. Currently in remission. [facility] Cardiology:echo showed EF 20% [facility] Cardiology: B P today: 133/78 P rior BP: 140/85 (03/06/2023) The following medications were removed from the medication list: Aldactone 25 Mg Tablet (Spironolactone) ..... 1/2 tablet by mouth once a day Coreg 3.125 Mg Tablet (Carvedilol) ..... Take 1 tablet by mouth twice a day His updated medication list for this problem includes: Carvedilol 3.125 Mg Tablet (Carvedilol) ..... Take 1 tablet by mouth twice daily with meals [facility] [facility]:Pt compla ins of recurrent syncopal episodes. In addition SOB with minimal exertion and CP. Echo showed EF 20%. We will schedule right and left heart cath, telecentry, and RPM [facility] Cardiology:Pt compla ins of recurrent syncopal episodes. In addition SOB with minimal exertion and CP. Echo showed EF 20%. We will schedule right and left heart cath, telecentry, and RPM [facility] :97 Lucian Mayen MD :30 Lucian Mayen MD :565 Lucian Mayen MD Cardiology:Continues to follow up with oncology at [place]. Currently in remission. Mauricio Romano NP Cardiology:Continues on Vit D shane ppplements Mauricio Romano NP Cardiology:Managed p er PCP. H is updated medication list for this problem includes: Levothyroxine 100 Mcg Tablet (Levothyroxine) Mauricio Romano NP Cardiology:Continues on Iron sup plements Mauricio Romano SARAH Cardiology: 3 9 (07/31) Mauricio Romano RADIOLOGICAL EQUIPMENT SPECIALIST Cardiology: T he following medications were removed from the medication list: Amlodipine 5 Mg Tablet (Amlodipine) Hydrochlorothiazide 12.5 Mg Tablet (Hydrochlorothiazide) ..... Take 1 tablet by mouth daily His updated medication list for this problem includes: Coreg 3.125 Mg Tablet (Carvedilol) ..... Take 1 tablet by mouth twice a day Aldactone 25 Mg Tablet (Spironolactone) ..... 1/2 tablet by mouth once a day BP today: 140/85 P rior BP: 140/91 (11/06/2022) Mauricio Romano SARAH Cardiology:Conclusio ns: Echo 01/01 N ormal left ventricular size. Moderate concentric left ventricular hypertrophy. Left v entricular ejection fraction is estimated at 20% T he mitral valve is normal in appearance and function. Mild mitral valve regurgitation. A ortic valve leaflets appear structurally normal. Trace to mild aortic valve regurgitation W ill start Entresto, Coreg and Aldactone. Mauricio Romano SARAH Cardiology:Not on any medication currennty Mauricio Romano SARAH Cardiology:Conclusio ns: Echo 01/01 N ormal left ventricular size. Moderate concentric left ventricular hypertrophy. Left v entricular ejection fraction is estimated at 20 %. T he mitral valve is normal in appearance and function. Mild mitral valve regurgitation. A ortic valve leaflets appear structurally normal. Trace to mild aortic valve regurgitation W ill schedule patient for cardiac cath. W ill start Entresto, Coreg and Aldactone. Mauricio Romano SARAH Cardiology:Conclusio ns: Echo 12/2022 N ormal left ventricular size. Moderate concentric left ventricular hypertrophy. Left v entricular ejection fraction is estimated at 20 %. T he mitral valve is normal in appearance and function. Mild mitral valve regurgitation. A ortic valve leaflets appear structurally normal. Trace to mild aortic valve regurgitation Mauricio Moserfahad SMITH :mild tr and ai and mr Lucian álvarez MD :20% Lucian Mayen MD Cardiology: T he following medications were removed from the medication list: Ramipril 1.25 Mg Capsule (Ramipril) ..... Take 1 capsule by mouth daily His updated medication list for this problem includes: Hydrochlorothiazide 12.5 Mg Tablet (Hydrochlorothiazide) ..... Take 1 tablet by mouth daily Amlodipine 5 Mg Tablet (Amlodipine) Hydrochlorothiazide 12.5 Mg Tablet (Hydrochlorothiazide) ..... Take 1 tablet by mouth daily Ramipril 1.25 Mg Capsule (Ramipril) ..... Take 1 capsule by mouth daily Ramipril 1.25 Mg Capsule (Ramipril) ..... Take 1 capsule by mouth daily Amlodipine 5 Mg Tablet (Amlodipine) BP today: 140/91 P rior BP: 136/73 (08/06/2022) Lucian Mayen MD Cardiology Lucian Mayen MD Cardiology:down to 205 Lucian álvarez MD Cardiology: n eg a1c and uactr, neg braim ct Lucian Mayen MD Cardiology Lucian Mayen MD Cardiology:39 Lucian Mayen MD Cardiology:up tp date on colon H janie Mayen MD Cardiology Lucian Mayen MD Cardiology: 5 .78 Lucian Mayen MD Cardiology Lucian Serotjacek CANALES Cardiology Lucian Mayen MD Lucian Mayen MD :5.78 Lucian Mayen MD :1350 Lucian Mayen MD :neg a1c and d Lucian Mayen MD Cardiology Lucian Serotjacek CANALES Cardiology Lucian Serotjacek CANALES Cardiology Lucian Serotjacek CANALES Cardiology Lucian Serota Cardiology Lucian Serotjacek CANALES Cardiology Lucian Serota Cardiology Lucian Serota Cardiology Lucian Serota Cardiology Lucian Mayen MD Cardiology:sobeida krueger ct Lucian Mayen MD Cardiology:otoniel andrade ct Lucian sanchez MD Date Name MAGNESIUM Complete Echo Microalb/Creatinine Urine, Random CBC (INCLUDES DIFF/P LT) PROBNP, N TERMINAL BASIC METABOLIC PANE L W/EGFR RPM (remote patient monitoring) Complete Echo X-Ray, Chest - Routi ne X-Ray, Chest - Routi ne URINALYSIS, COMPLETE W/REFLEX TO CULTURE COMPREHENSIVE METABO LIC PANEL, W/EGFR CBC (INCLUDES DIFF/P LT) Partial Thromboplast in Time, Activated PROTHROMBIN TIME WIT H INR X-Ray, Chest - Routi ne X-Ray, Chest - Routi ne CT, Pelvis PARTIAL THROMBOPLAST IN TIME, ACTIVATED URINALYSIS, COMPLETE W/REFLEX TO CULTURE COMPREHENSIVE METABO LIC PANEL W/EGFR PROTHROMBIN TIME WIT H INR CBC (INCLUDES DIFF/P LT) Arterial Duplex Bi-L ower EX EKG Partial Thromboplast in Time, Activated CBC (INCLUDES DIFF/P LT) Monitor - Telemetry (Mobile Cardiac) RPM (remote patient monitoring) LIPID PANEL Lipoprotein (a) PROBNP, N TERMINAL CRP, high sensitivit y PROBNP, N TERMINAL BASIC METABOLIC PANE L W/EGFR Microalb/Creatinine Urine, Random HEMOGLOBIN A1c BASIC METABOLIC PANE L W/EGFR RPM (remote patient monitoring) Lipoprotein (a) PROBNP, N TERMINAL PROTHROMBIN TIME WIT H INR LIPID PANEL CBC (INCLUDES DIFF/P LT) BASIC METABOLIC PANE L W/EGFR IRON AND TOTAL IRON BINDING CAPACITY FERRITIN CBC (INCLUDES DIFF/P LT) Holter Monitor 24 Hr Complete Echo Stress Regadenoson Carotid Duplex Bilat eral CT, Coronary Calcium Score CT Abdomen without c ontrast Renal Artery Duplex Kidney Ultrasound Vitamin D, 25-Hydrox y CT Abdomen without c ontrast Kidney Ultrasound Renal Artery Duplex PROBNP, N TERMINAL TSH, free T4, total T3 CRP, high sensitivit y LIPID PANEL B TYPE NATRIURETIC P EPTIDE (BNP) COMPREHENSIVE METABO LIC PANEL, W/EGFR CT, Coronary Calcium Score Carotid Duplex Bilat eral RPM (remote patient monitoring) Monitor - Telemetry (Mobile Cardiac) Stress Regadenoson CXR- PA/Lat RPR (MONITOR) W/REFL TITER Complete Echo PSA, TOTAL VITAMIN B12 FOLATE, SERUM Microalb/Creatinine Urine, Random HEMOGLOBIN A1c IRON AND TOTAL IRON BINDING CAPACITY CBC (INCLUDES DIFF/P LT) FERRITIN HISTORY OF PROCEDURES Procedure Date Procedure Name Provider Procedure Notes S tatus Complex e/m visit add on Virgilio Mckeon MD completed EKG Virgilio Mckeon MD completed Complex e/m visit add on Virgilio Mckeon MD completed EKG Virgilio Mckeon MD completed EKG Lucian Mayen MD complete d
--- OUTSIDE RECORDS SUMMARY | 2025-01-19 13:56 | XMS_ITS ---
Author Organization [facility] Office Address [address] [address] [place] [address] Care Team Providers Care Surgical Services Coordinator Name Role Phone Cooper Pena Unavailable [phone] MEDICATIONS Medication SIG (Take, Route, Fr equency, Duration) Notes Start Date End Date Status Calcitriol 0.25 MCG TAKE 1 CAPSULE BY [place] TWICE DAILY for 90 Active Allopurinol 100 MG 1 tablet Orally Once a day for 90 day(s) 04/22/2024 01/17/2025 Active Allopurinol 300 MG 2 tablet Orally Once a day for 90 days 04/26/2024 04/21/2025 Active PROBLEMS Problem Type ICD Code Onset Dates Problem Status W/U Status Risk SNOMED Code Notes Problem Essential hypertension (I10) Active confirmed Essential hypertension (18072043) Problem Hypothyroidism, unspecified (E03.9) Active confirmed Hypothyroidism (81580888) Problem Chronic kidney disease, stage 4 (severe) (N18.4) Active confirmed Chronic kid sergei disease stage 4 (398851436) Encounters Encounter Location Date Provider Diagnosis [place] [facility] [address] [facility] 15 [place] [address] 07/08/2024 Cooper Pena Anemia, unspecified D64.9 ; Essential hypertension I10 ; Hypothyroidism, unspecified E03.9 ; Renal osteodystrophy N25.0 ; Vitamin D deficiency, unspecified E55.9 ; Heart failure, unspecified I50.9 ; Secondary hyperparathyroidism, not elsewhere classified E21.1 and Chronic kidney disease, stage 4 (severe) N18.4 ASSESSMENTS Encounter Date Diagnosis Assessment Notes Treatment [...] Name:Cooper Pena , 01/27/2025 12:45:00 PM, [address], [facility], Progress Notes * ZACK FONTENOTDOB: 9 (74 yo M)Acc No.[id number]:07/08/2024 Progress Notes Patient: ZACK FONTENOT Provider: MD PUSHPA, F.A.C.P, F.A.S.N. :1950 Age:73 Y Sex:Male Date:07/08/2024 Address:[address] [place] [address] Subjective: * Chief Complaints: * * Medical History: * Medications: Taking Allopurinol 100 MG Tablet 1 tablet Orally Once a day , stop date 01/17/2025, Taking Allopurinol 300 MG Tablet 2 tablet Orally Once a day , stop date 04/21/2025, Taking Calcitriol 0.25 MCG Capsule TAKE 1 CAPSULE BY MOUTH TWICE DAILY Objective: Assessment: * Assessment: 1. Anemia, unspecified - D64.9 2. Essential hypertension - I10 3. Hypothyroidism, unspecified - E03.9 4. Renal osteodystrophy - N25.0 5. Vitamin D deficiency, unspecified - E55.9 6. Heart failure, unspecified - I50.9 7. Secondary hyperparathyroidism, not elsewhere classified - E21.1 8. Chronic kidney disease, stage 4 (severe) - N18.4 Plan: * Treatment: * Billing Information: * Visit Code: 43807 Office Visit, Est Pt., Level 4. * Procedure Codes: * Sign off status: Pending * Provider: MD PUSHPA, F.A.C.P, F.A.S.N. Date: 07/08/2024
== END 2025-01-19 12:09 | disposition home or self-care (01) ==
PROVIDERS: Referring Provider Internal Medicine Cardiovascular Disease; Visit Provider Specialist
DX: Z13.6 Encounter for screening for cardiovascular disorders (principal); R06.02 Shortness of breath; R42 Dizziness and giddiness; R55 Syncope and collapse; I42.9 Cardiomyopathy, unspecified; N28.1 Cyst of kidney, acquired; E55.9 Vitamin D deficiency, unspecified; E78.5 Hyperlipidemia, unspecified; D51.9 Vitamin B12 deficiency anemia, unspecified; I50.1 Left ventricular failure, unspecified; G62.9 Polyneuropathy, unspecified; K21.9 Gastro-esophageal reflux disease without esophagitis; M54.9 Dorsalgia, unspecified; E66.9 Obesity, unspecified; C64.9 Malignant neoplasm of unspecified kidney, except renal pelvis; C61 Malignant neoplasm of prostate; I44.4 Left anterior fascicular block; K76.89 Other specified diseases of liver; D50.9 Iron deficiency anemia, unspecified; I12.9 Hypertensive chronic kidney disease with stage 1 through stage 4 chronic kidney disease, or unspecified chronic kidney disease; N18.2 Chronic kidney disease, stage 2 (mild); E03.9 Hypothyroidism, unspecified; Z20.89 Contact with and (suspected) exposure to other communicable diseases; I38 Endocarditis, valve unspecified
CPT/HCPCS: 36415; 80053; 81003; 82043; 82306; 83036; 83735; 83880; 83970; 84153; 84443; 84550; 85025

== ENCOUNTER 2025-04-19 12:23 | Outpatient (CLI) | payer MEDICARE, MEDICAID, SELFPAY ==
[2025-04-19 13:04] LABS: Basophils Percent Auto 0.5 % (0.2-1.2); Eosinophils Absolute Auto 0.4 K/mm3 (0-0.3); Eosinophils Percent Auto 5.8 % (0-4.4); Hematocrit 41.3 % (42.0-52.0); Hemoglobin 13.7 g/dL (14.0-18.0); Immature Granulocyte Absolute 0.03 K/mm3 (0.00-0.031); Immature Granulocyte Percent A 0.5 % (0-0.5); Lymphocytes Absolute Auto 2.04 K/mm3 (0.9-3.2); Lymphocytes Percent Auto 31.9 % (18.3-44.2); Mean Corpuscular HGB Conc 33.2 g/dl (32-36); Mean Corpuscular Hemoglobin 32.9 pg (26-34); Mean Corpuscular Volume 99.3 fl (80-100); Mean Platelet Volume 11.2 fl (7.4-10.4); Monocytes Absolute Auto 0.7 K/mm3 (0.1-0.6); Monocytes Percent Auto 11.4 % (2.6-8.5); Neutrophils Absolute Auto 3.2 K/mm3 (1.3-6.7); Neutrophils Percent Auto 49.9 % (45.5-73.1); Platelet Count Result 164 k/mm3 (150-375); Red Blood Count 4.16 M/mm3 (4.6-6.20); Red Cell Distribution Width 15.1 % (11.5-14.5); White Blood Count 6.4 K/mm3 (4.5-10.0)
[2025-04-19 13:23] LABS: Alanine Aminotransferase 9 U/L (6-50); Alkaline Phosphatase 65 U/L (38-126); Anion Gap 8 mmol/L (4-12); Aspartate Amino Transferase 14 U/L (17-59); Bilirubin,Total 0.8 mg/dL (0.2-1.3); Blood Urea Nitrogen 25 mg/dL (9-20); Calcium 9.7 mg/dL (8.4-10.2); Carbon Dioxide 36 mmol/L (22-30); Chloride 94 mmol/L (98-107); Estimated Glomerular Filt Rate 26; Glucose 102 mg/dL (65-110); Potassium 3.6 mmol/L (3.4-5.0); Sodium 138 mmol/L (137-145); Total Protein 7.2 g/dL (6.3-8.2); Uric Acid 5.4 mg/dL (3.5-8.5)
[2025-04-19 13:47] LABS: Vitamin D 25 Hydroxy 77.7 ng/mL
[2025-04-19 13:49] LABS: Prostate Specific Antigen 13.5 ng/mL (< OR = 4.0)
[2025-04-19 14:04] LABS: Add Urine Microscopic? NO; Appearance Urine Clear (Clear); Bilirubin Urine Negative (Negative); Blood Urine Negative (Negative); Color Urine Yellow (Yellow); Glucose Urine UA 3+ mg/dL (Negative); Ketones Urine Negative (Negative); Leukocyte Esterase Ur Negative LEU/UL (Negative); Nitrate Urine Negative (Negative); Protein Urine Negative (Negative); pH Urine 5.5 (5.0-9.0)
[2025-04-19 14:20] LABS: Specific Grav Ur 1.016 (1.001-1.035); Urobilinogen Urine 0.2 mg/dL (<2.0)
--- OUTSIDE RECORDS SUMMARY | 2025-04-19 14:21 | XMS_ITS ---
Author Organization [facility] Address [address] [facility] 61 [facility] [address] [place] [address] Care Team Providers Care Automotive Service Manager Name Role Phone Cooper Pena Unavailable [phone] Problems Problem Type SNOMED Code ICD Code Onset Dates Problem Status W/U Status Risk Notes Problem Sciatica (08725415) Sciatica, unspecified side (M54.30) Active confirmed Encounters Encounter Location Date Provider Diagnosis [place] [facility] 2043 [facility] 15 [place] [address] 02/03/2025 Cooper Pena Chronic kidney disea se, [...] Next Appt Details Provider Name:Cooper Pena , 04/21/2025 02:45:00 PM, 2043 [facility], [facility] 15, [place], [address], Progress Notes * ZACK FONTENOTDOB: [birth year] (74 yo M)Acc No.[id number]:02/03/2025 Progress Notes Patient: ZACK DURAN Provider: Wendy ANDERSON MD, F.A.C.P, F.A.S.N. :1950 A ge:74 Y S ex:Male Date:02/03/2025 Address:[address] [place] [address] Subjective: * Chief [...] Treatment: * Billing Information: * Visit Code: 01892 Office Visit, Est Pt., Level 4. * Procedure Codes: * Electronic signature of Azalea Pena MD on 04/19/2025 at 02:21 PM CDT Sign off status: Pending * Provider: Wendy ANDERSON MD, Elise.Beulah.C.P, F.A.S.N. Date: 0 02/03/2025 Generated for Printing/Faxing/eTransmitting on: 0 04/19/2025 02:21 PM CDT
--- OUTSIDE RECORDS SUMMARY | 2025-04-19 14:21 | XMS_ITS ---
Author Organization [facility] Address [address] [address] [place] [address] Care Team Providers Care Life Skills Coach Name Role Phone JeanDianaCooper Unavailable [phone] Medications Medication SIG (Take, Route, Fr equency, Duration) Notes Start Date End Date Status Allopurinol 300 MG 2 tablet Orally Once a day for 90 days 04/26/2024 04/21/2025 Active Calcitriol 0.25 MCG TAKE 1 CAPSULE BY [facility] TWICE DAILY for 90 Active Allopurinol 100 MG 1 tablet Orally Once a day for 90 day(s) 04/22/2024 01/17/2025 Active Problems Problem Type SNOMED Code ICD Code Onset Dates Problem Status W/U Status Risk Notes Problem Absent kidney (168857908) Acquired absence of kidney (Z90.5) Active confirmed Encounters Encounter Location Date Provider Diagnosis [place] [facility] [address] [address] 11/25/2024 Cooper Pena Chronic kidney disea se, [...] Name:Cooper Pena , 04/21/2025 02:45:00 PM, 2043 [facility] [address], [place], [address], Progress Notes * ZACK FONTENOTDOB: [birth year] (74 yo M)Acc No.[id number]:11/25/2024 Progress Notes Patient: ZACK DURAN Provider: Wendy ANDERSON MD, F.A.C.P, F.A.S.N. :1950 A ge:74 Y S ex:Male Date:11/25/2024 Address:[address] [place] [address] Subjective: * Chief Complaints: * * Medical [...] Treatment: * Billing Information: * Visit Code: 42770 Office Visit, Est Pt., Level 4. * Procedure Codes: * Electronic signature of Azalea Pena MD on 04/19/2025 at 02:21 PM CDT Sign off status: Pending * Provider: Wendy ANDERSON MD, F.A.C.P, F.A.S.N. Date: 0 11/25/2024 Generated for Printing/Faxing/eTransmitting on: 0 04/19/2025 02:21 PM CDT
--- OUTSIDE RECORDS SUMMARY | 2025-04-19 14:22 | XMS_ITS | Patient Health Record ---
Author Organization [facility] Address [address] [facility] [address] [place] [address] Care Team Providers Care Sintering Plant Supervisor Name Role Phone Cooper Pena Unavailable [phone] Reason For Referral No Information Medications Medication SIG (Take, Route, Fr equency, Duration) Notes Start Date End Date Status Allopurinol 300 MG 2 tablet Orally Once a day for 90 days 04/26/2024 04/21/2025 Active Calcitriol 0.25 MCG TAKE 1 CAPSULE BY [facility] TWICE DAILY for 90 Active Problems Problem Type SNOMED Code ICD Code Onset Dates Problem Status W/U Status Risk Notes Problem Anemia (198997743) Anemia, unspecified (D64.9) Active confirmed Problem Hypothyroidism (85471164) Hypothyroidism, unspecified (E03.9) Active confirmed Problem Secondary hyperparathyroidism (39795863) Secondary hyperparathyroid ism, not elsewhere classified (E21.1) Active confirmed Problem Vitamin D deficiency (34449988) Vitamin D deficiency, unspecified (E55.9) Active confirmed Problem Heart failure (13013477) Heart failure, unspecified (I50.9) Active confirmed Problem Sciatica (76284888) Sciatica, unspecified side (M54.30) Active confirmed Problem Chronic kidney disease stage 4 (936898957) Chronic kidney disease, stage 4 (severe) (N18.4) Active confirmed Problem Renal osteodystrophy (43783620) Renal osteodystrophy (N25.0) Active confirmed Problem Absent kidney (889658233) Acquired absence of kidney (Z90.5) Active confirmed Problem Essential hypertension (98365336) Essential hypertension (I10) Active confirmed Encounters Encounter Location Date Provider Diagnosis [place] [facility] [address] [facility] [address] [place] [address] 04/22/2024 Cooper Pena Chronic kidney disea se, stage 3a N18.31 ; Anemia, unspecified D64.9 ; Heart failure, unspecified I50.9 ; Renal osteodystrophy N25.0 ; Secondary hyperparathyroidism, not elsewhere classified E21.1 and Vitamin D deficiency, unspecified E55.9 [place] [facility] [address] [address] 07/08/2024 Cooper Pena Anemia, unspecified D64.9 ; Essential hypertension I10 ; Hypothyroidism, unspecified E03.9 ; Renal osteodystrophy N25.0 ; Vitamin D deficiency, unspecified E55.9 ; Heart failure, unspecified I50.9 ; Secondary hyperparathyroidism, not elsewhere classified E21.1 and Chronic kidney disease, stage 4 (severe) N18.4 [facility] [place] [facility] [address] [place] [address] 08/26/2024 Cooper Pena Anemia, unspecified D64.9 ; Chronic kidney disease, stage 4 (severe) N18.4 ; Heart failure, unspecified I50.9 ; Renal osteodystrophy N25.0 ; Secondary hyperparathyroidism, not elsewhere classified E21.1 ; Vitamin D deficiency, unspecified E55.9 ; Essential hypertension I10 and Hypothyroidism, unspecified E03.9 [place] [facility] [address]43 [place] [address] 11/25/2024 Cooper Pena Chronic kidney disea se, stage 4 (severe) N18.4 ; Elevated prostate specific antigen (PSA) R97.20 ; Essential hypertension I10 ; Renal osteodystrophy N25.0 ; Secondary hyperparathyroidism, not elsewhere classified E21.1 ; Abnormal results of thyroid function studies R94.6 and Acquired absence of kidney Z90.5 [place] [facility] [address] [address] 02/03/2025 Cooper Pena Chronic kidney disea se, stage 4 (severe) N18.4 ; Anemia, unspecified D64.9 ; Heart failure, unspecified I50.9 ; Renal osteodystrophy N25.0 ; Secondary hyperparathyroidism, not elsewhere classified E21.1 ; Vitamin D deficiency, unspecified E55.9 ; Essential hypertension I10 ; Hypothyroidism, unspecified E03.9 ; Acquired absence of kidney Z90.5 and Sciatica, unspecified side M54.30 [place] [facility] [address] [facility] [address] [place] [address] 04/22/2024 Cooper Pena [facility] [address] [address] 04/26/2024 Cooper Pena Assessments Encounter Date Diagnosis (ICD Code) Assessment [...] prostate specific antigen (PSA) (ICD-10 - R97.20) 02/03/2025 Chronic kidney disease, stage 4 (severe) (ICD-10 - N18.4) 11/25/2024 Essential hypertension (ICD-10 - I10) 02/03/2025 Anemia, unspecified (ICD-10 - D64.9) 08/26/2024 Heart failure, unspecified (ICD-10 - I50.9) 07/08/2024 Essential hypertension (ICD-10 - I10) 04/22/2024 Anemia, unspecified (ICD-10 - D64.9) 07/08/2024 Hypothyroidism, unspecified (ICD-10 - E03.9) 04/22/2024 Heart failure, unspecified (ICD-10 - I50.9) 11/25/2024 Renal osteodystrophy (ICD-10 - N25.0) 08/26/2024 Renal osteodystrophy (ICD-10 - N25.0) 02/03/2025 Heart failure, unspecified (ICD-10 - I50.9) 02/03/2025 Renal osteodystrophy (ICD-10 - N25.0) 08/26/2024 Secondary hyperparathyroidism , not elsewhere classified (ICD-10 - E21.1) 11/25/2024 Secondary hyperparathyroidism , not elsewhere classified (ICD-10 - E21.1) 04/22/2024 Renal osteodystrophy (ICD-10 - N25.0) 07/08/2024 Renal osteodystrophy (ICD-10 - N25.0) 07/08/2024 Vitamin D deficiency, unspecified (ICD-10 - E55.9) 04/22/2024 Secondary hyperparathyroidism , not elsewhere classified (ICD-10 - E21.1) 02/03/2025 Secondary hyperparathyroidism , not elsewhere classified (ICD-10 - E21.1) 08/26/2024 Vitamin D deficiency, unspecified (ICD-10 - E55.9) 11/25/2024 Abnormal results of thyroid function studies (ICD-10 - R94.6) 11/25/2024 Acquired absence of kidney (ICD-10 - Z90.5) 08/26/2024 Essential hypertension (ICD-10 - I10) 02/03/2025 Vitamin D deficiency, unspecified (ICD-10 - E55.9) 04/22/2024 Vitamin D deficiency, unspecified (ICD-10 - E55.9) 07/08/2024 Heart failure, unspecified (ICD-10 - I50.9) 08/26/2024 Hypothyroidism, unspecified (ICD-10 - E03.9) 07/08/2024 Secondary hyperparathyroidism , not elsewhere classified (ICD-10 - E21.1) 02/03/2025 Essential hypertension (ICD-10 - I10) 07/08/2024 Chronic kidney disease, stage 4 (severe) (ICD-10 - N18.4) 02/03/2025 Hypothyroidism, unspecified (ICD-10 - E03.9) 02/03/2025 Acquired absence of kidney (ICD-10 - Z90.5) 02/03/2025 Sciatica, unspecified side (ICD-10 - M54.30) Plan Of Treatment Next Appt Details Provider Name:Cooper Pena , 04/21/2025 02:45:00 PM, [address], [address], [place], [address],
--- OUTSIDE RECORDS SUMMARY | 2025-04-19 14:22 | XMS_ITS ---
Author Organization [facility] Address [address] [place] [address] Care Team Providers Care Family Services Assistant Name Role Phone JeanDianaCooper Unavailable [phone] Medications Medication SIG (Take, Route, Fr equency, Duration) Notes Start Date End Date Status Calcitriol 0.25 MCG TAKE 1 CAPSULE BY [facility] TWICE DAILY for 90 Active Allopurinol 300 MG 2 tablet Orally Once a day for 90 days 04/26/2024 04/21/2025 Active Allopurinol 100 MG 1 tablet Orally Once a day for 90 day(s) 04/22/2024 01/17/2025 Active Encounters Encounter Location Date Provider Diagnosis [facility] [place] [facility] [address] [place] [address] 08/26/2024 Cooper Pena Anemia, unspecified D64.9 ; [...] Name:Cooper Pena , 04/21/2025 02:45:00 PM, 2043 [facility], [facility] 15, [place], [place], [facility], Progress Notes * ZACK FONTENOTDOB: 9 (74 yo M)Acc No.[id number]:08/26/2024 Progress Notes Patient: ZACK DURAN Provider: Wendy ANDERSON MD, F.A.C.P, F.A.S.N. :1950 A ge:73 Y S ex:Male Date:08/26/2024 Address:[address] [place] [address] Subjective: * Chief Complaints: * * Medical [...] Treatment: * Billing Information: * Visit Code: 40544 Office Visit, Est Pt., Level 4. * Procedure Codes: * Electronic signature of Azalea Pena MD on 04/19/2025 at 02:21 PM CDT Sign off status: Pending * Provider: Wendy ANDERSON MD, F.A.C.P, F.A.S.N. Date: 1 Generated for Printing/Faxing/eTransmitting on: 0 04/19/2025 02:21 PM CDT
[2025-04-19 15:55] LABS: Hemoglobin A1C 5.1 % (<5.7)
[2025-04-19 16:44] LABS: Creatinine Urine 148.1 mg/dL; MALB Creatinine Ratio 4.7 mg/g (0-30)
== END 2025-04-19 12:24 | disposition home or self-care (01) ==
PROVIDERS: PCP Internal Medicine; Visit Provider Specialist
DX: E21.3 Hyperparathyroidism, unspecified (principal); E55.9 Vitamin D deficiency, unspecified; E78.41 Elevated Lipoprotein(a); E78.5 Hyperlipidemia, unspecified; E87.20 Acidosis, unspecified; I50.9 Heart failure, unspecified; N39.0 Urinary tract infection, site not specified; R35.0 Frequency of micturition; R60.9 Edema, unspecified; R73.09 Other abnormal glucose; R94.6 Abnormal results of thyroid function studies; I12.9 Hypertensive chronic kidney disease with stage 1 through stage 4 chronic kidney disease, or unspecified chronic kidney disease; N18.4 Chronic kidney disease, stage 4 (severe); Z12.5 Encounter for screening for malignant neoplasm of prostate
CPT/HCPCS: 36415; 80053; 81003; 82043; 82306; 83036; 83970; 84153; 84443; 84550; 85025; G0103

== ENCOUNTER 2025-06-27 12:46 | Outpatient (CLI) | payer MEDICARE, MEDICAID, SELFPAY ==
--- OUTSIDE RECORDS SUMMARY | 2024-09-10 05:56 | XMS_ITS | Continuity of Care Document ---
Author Name [facility] Organization [facility] Care Team Providers Care Cemetery Warden Name Role Phone [facility] Unavailable Unavailable Problems Combined list of problems from Department of Defense and [facility] Affairs facilities. It does not include entries that were removed or entered in error. Problem Status Onset Date Problem Type Date of Resolution Comments Source Acute osteomyelitis involving ankle and foot (ICD-9-CM 730.07) Active Condition [facility] Alcohol Abuse Active Condition [facility] Anemia * (ICD-9-CM 285.9) Active Condition [facility] Arthritis, Gouty * (ICD-9-CM 274.0) Active Condition [facility] Backache (ICD-9-CM 724.5) Active Condition [facility] Blurred vision (ICD-9-CM 368.8) Active Condition March 19 7 Entered By: DONATO ISABEL Comment: CHRONIC....SC HEDULED W/ OPTOMETRY [facility] CHF * (ICD-9-CM 428.0) Active Condition [facility] Chronic Kidney Disease, Stage III (Moderate) (ICD-9-CM 585.3) Active Condition [facility] 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) Active Condition [facility] Debility (ICD-9-CM 799.3) Active Condition [facility] Depression * (ICD-9-CM 311./300.4) Active Condition [facility] Diarrhea * (ICD-9-CM 787.91) Active Condition [facility] Difficulty in Walking (ICD-9-CM 719.7) Active Condition [facility] Dislocation, AC Joint Active Condition [facility] Dizziness and giddiness (ICD-9-CM 780.4) Active Condition [facility] GERD * (ICD-9-CM 530.81) Active Condition [facility] Gout * (ICD-9-CM 274.9) Active Condition [facility] Graves' Disease * (ICD-9-CM 242.00) Active Condition [facility] HTN * (ICD-9-CM 401.9) Active Condition [facility] Hyperlipidemia * (ICD-9-CM 272.4) Active Condition [facility] Hyperuricemia * (ICD-9-CM 790.6) Active Condition [facility] Hypokalemia * (ICD-9-CM 276.8) Active Condition [facility] 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 Elsewhere a Active Condition [facility] Mood Disorder NOS Active Condition [facility] Multiple Therapy Rehab Active Condition [facility] Neck Pain (ICD-9-CM 723.1) Active Condition [facility] Olecranon bursitis (ICD-9-CM 726.33) Active Condition [facility] Pain in joint involving shoulder region (ICD-9-CM 719.41) Active Condition March 19, 2007 Entered By: DONATO ISABEL Comment: OBVIOUS STEP OFF AT RIGHT AC JOINT [facility] Rotator Cuff Syndrome Active Condition [facility] Screening for Thyroid Disorders (ICD-9-CM V77.0) Active Condition [facility] Immunizations Combined list of available immunizations from the Department of Defense and Veterans Affairs facilities. Immunization Series Date Given Administered By Site Reaction Lot Number CVX Code Drug Tape Cutter Status Comments Source INFLUENZA, UNSPECIFIED FORMULATION 2008 88 complet ed [facility] PNEUMOCOCCAL, UNSPECIFIED FORMULATION 2008 109 complet ed [facility] INFLUENZA, UNSPECIFIED FORMULATION 2007 88 complet ed [facility] INFLUENZA, UNSPECIFIED FORMULATION 2006 88 complet ed [facility] INFLUENZA, UNSPECIFIED FORMULATION 2005 VU ARGUETA 88 complet ed [facility] Encounters Combined list of: 1) Encounters from Department of Veterans Affairs facilities going backup to the last 18 months, not all VA inpatient encounters are included; 2) Encounters from the Department of [facility] facilities going backup to 280 months. Location Location Details Encounter Type Encounter Number Reason For Visit Attending Provider ADM Date DC Date Status Disposition Source [facility] Outpatient Encounter [id number] 7 09/10 [facility] Social History Combined list of available smoking, tobacco, and other social history from Department of [facility] and [facility] facilities. Social History Type Response Date Comment Sourc e Tobacco smoking status NHIS LIFETIME NON-USER OF TOBACCO 03/22/2009 [facility] History of tobacco use LIFETIME NON-USER OF TOBACCO 03/22/2009 [facility] History of tobacco use LIFETIME NON-USER OF TOBACCO 02/01/2009 [facility] History of tobacco use QUIT TOBACCO >7 Y EARS AGO 01/30/2009 [facility] History of tobacco use LIFETIME NON-USER OF TOBACCO 01/16/2009 [facility] History of tobacco use LIFETIME NON-USER OF TOBACCO 01/06/2009 [facility] History of tobacco use LIFETIME NON-USER OF TOBACCO 09/28/2008 [facility] Advance Directives List of completed, amended, or rescinded Advance Directives on record at [facility] facilities. An actual copy of the Directive is not included. Date Advance Directive Provider Source 01/10/2009 ADVANCE DIRECTIVE ELISA [facility]
--- OUTSIDE RECORDS SUMMARY | 2025-02-03 07:45 | XMS_ITS ---
Author Organization [facility] Address [address] [facility] 61 [facility] [address] [place] [address] Care Team Providers Care Phytopathology Teacher Name Role Phone Jean Cooper Unavailable [phone] Problems Problem Type SNOMED Code ICD Code Onset Dates Problem Status W/U Status Risk Notes Problem Sciatica (35334359) Sciatica, unspecified side (M54.30) Active confirmed Encounters Encounter Location Date Provider Diagnosis [place] [facility] 2043 [facility] 15 [place] [address] 02/03/2025 Cooper Pena Chronic kidney disea se, [...] Next Appt Details Provider Name:Cooper Pena , 06/30/2025 01:45:00 PM, 2043 [facility], [facility] 15, [place], [address], Progress Notes * ZACK FONTENOTDOB: [birth year] (74 yo M)Acc No.[id number]:02/03/2025 Progress Notes Patient: ZACK DURAN Provider: Wendy ANDERSON MD, F.A.C.P, F.A.S.N. :1950 A ge:74 Y S ex:Male Date:02/03/2025 Address:[address] [place] [address] Subjective: * Chief Complaints: * * Medical [...] Treatment: * Billing Information: * Visit Code: 03278 Office Visit, Est Pt., Level 4. * Procedure Codes: * Electronic signature of Azalea Pena MD on 06/27/2025 at 12:57 PM CDT Sign off status: Pending * Provider: Wendy ANDERSON MD, Elise.Beulah.C.P, F.A.S.N. Date: 0 02/03/2025 Generated for Printing/Faxing/eTransmitting on: 0 06/27/2025 12:57 PM CDT
--- OUTSIDE RECORDS SUMMARY | 2025-04-21 12:00 | XMS_ITS ---
Author Organization [facility] Address [address] [place] [address] Care Team Providers Care Motion Study Analyst Name Role Phone JeanDianaCooper Unavailable [phone] Encounters Encounter Location Date Provider Diagnosis [place] [facility] 2043 [facility] 15 [place] [address] 04/21/2025 Cooper Pena Plan Of Treatment Next Appt Details Provider Name:Cooper Pena , 06/30/2025 01:45:00 PM, [address] [address], [place], [address], Progress Notes * ZACK FONTENOTDOB: [birth year] (74 yo M)Acc No.[id number]:04/21/2025 Progress Notes Patient: ZACK DURAN Provider: Wendy ANDERSON MD, Elise.Beulah.C.P, F.A.S.N. :1950 A ge:74 Y S ex:Male Date:04/21/2025 Address:[address] [place] [address] Subjective: * Chief Complaints: * * Medical History: Objective: * Vitals: Assessment: Plan: * Treatment: * Billing Information: * Visit Code: * Procedure Codes: * Electronic signature of Azalea Pena MD on 06/27/2025 at 12:58 PM CDT Sign off status: Pending * Provider: Wendy ANDERSON MD, Elise.Beulah.C.P, F.A.S.N. Date: 04/21/2025 Generated for Printing/Faxing/eTransmitting on: 06/27/2025 12:58 PM CDT
--- OUTSIDE RECORDS SUMMARY | 2025-05-05 09:15 | XMS_ITS ---
Author Organization [facility] Address [address] [place], [place] [address] Care Team Providers Care Distribution District Supervisor Name Role Phone Jean Cooper Unavailable [phone] Encounters Encounter Location Date Provider Diagnosis [facility] [place] [facility] [address] [place] [address] 05/05/2025 Cooper Pena Chronic kidney disea se, [...] Next Appt Details Provider Name:Cooper Jean , 06/30/2025 01:45:00 PM, 2043 [facility], [facility], [place], [address], Progress Notes * ZACK FONTENOTDOB: 9 (74 yo M)Acc No.[id number]:05/05/2025 Progress Notes Patient: ZACK DURAN Provider: Wendy ANDERSON MD, F.A.C.P, F.A.S.N. :1950 A ge:74 Y S ex:Male Date:05/05/2025 Address:[address] [place], [place] [id number] Subjective: * Chief Complaints: * * Medical [...] Treatment: * Billing Information: * Visit Code: 02906 Office Visit, Est Pt., Level 4. * Procedure Codes: * Electronic signature of Azalea Pena MD on 06/27/2025 at 12:58 PM CDT Sign off status: Pending * Provider: Wendy ANDERSON MD, F.A.C.P, F.A.S.N. Date: 0 05/05/2025 Generated for Printing/Faxing/eTransmitting on: 0 06/27/2025 12:58 PM CDT
--- OUTSIDE RECORDS SUMMARY | 2025-06-27 12:58 | XMS_ITS | Clinical Summary ---
Author Organization [facility] [employer] Address [address] [place] [address] Care Team Providers Care Seat Builder Name Role Phone Unavailable Primary Care Provider Unavailabl e Source Comments [facility] [employer],non-owned Affiliates and Associated Physician Practices is amultiple site organization consisting of ambulatory clinics and hospital sitesin [place], [place], [place] and [place]. This disclosure is being madepursuant to the Care Everywhere program and may not contain all information available regarding this patient. Last updated 18.[facility] [employer] Active Problems Problem Noted Date Diagnosed Date [...] at Not on file Legal Sex Male 5:30 PM OVERLOCKER Gender Identity Not on file Sexual Orientation [...] 12:04 PM CDT Height 180.3 cm (5' 11) 05/26/2016 12:04 PM CDT Body Mass Index [...] VACCINE ( - 2023-2 5 season) 2024 Respiratory Syncytial Virus (RSV) Vaccine Pt: or over 60 yrs (1 - 1-dose 75+ series) 2024 DEPRESSION SCREENING 11/09/2024 INFLUENZA VACCINE (#1) 2025 HEPATITIS B VACCINE Aged Out No longe [...]
--- OUTSIDE RECORDS SUMMARY | 2025-06-27 12:58 | XMS_ITS | Patient Health Record ---
Author Organization [facility] Address [address] [facility] [address] [facility] [address] [place] [address] Care Team Providers Care V Belt Skiver Name Role Phone JeanDianaCooper Unavailable [phone] Reason For Referral No Information Medications Medication SIG (Take, Route, Fr equency, Duration) Notes Start Date End Date Status Calcitriol 0.25 MCG TAKE 1 CAPSULE BY [place] [facility] TWICE DAILY; Duration: 90 Active Problems Problem Type SNOMED Code ICD Code Onset Dates Problem Status W/U Status Risk Notes Problem Anemia (006437565) Anemia, unspecified (D64.9) Active confirmed Problem Hypothyroidism (76037147) Hypothyroidism, unspecified (E03.9) Active confirmed Problem Secondary hyperparathyroidism (25698109) Secondary hyperparathyroid ism, not elsewhere classified (E21.1) Active confirmed Problem Vitamin D deficiency (37441053) Vitamin D deficiency, unspecified (E55.9) Active confirmed Problem Heart failure (05415588) Heart failure, unspecified (I50.9) Active confirmed Problem Sciatica (31309563) Sciatica, unspecified side (M54.30) Active confirmed Problem Chronic kidney disease stage 4 (608338857) Chronic kidney disease, stage 4 (severe) (N18.4) Active confirmed Problem Renal osteodystrophy (84865026) Renal osteodystrophy (N25.0) Active confirmed Problem Absent kidney (321844178) Acquired absence of kidney (Z90.5) Active confirmed Problem Essential hypertension (44912926) Essential hypertension (I10) Active confirmed Encounters Encounter Location Date Provider Diagnosis [place] [facility] 2043 [facility] 15 [place] [address] 07/08/2024 Cooper Pena Anemia, unspecified D64.9 ; Essential hypertension I10 ; Hypothyroidism, unspecified E03.9 ; Renal osteodystrophy N25.0 ; Vitamin D deficiency, unspecified E55.9 ; Heart failure, unspecified I50.9 ; Secondary hyperparathyroidism, not elsewhere classified E21.1 and Chronic kidney disease, stage 4 (severe) N18.4 [facility] [place] [facility] [address] [place] [address] 08/26/2024 Cooper Pena Anemia, unspecified D64.9 ; Chronic kidney disease, stage 4 (severe) N18.4 ; Heart failure, unspecified I50.9 ; Renal osteodystrophy N25.0 ; Secondary hyperparathyroidism, not elsewhere classified E21.1 ; Vitamin D deficiency, unspecified E55.9 ; Essential hypertension I10 and Hypothyroidism, unspecified E03.9 [place] [facility] [address] [address] 11/25/2024 Cooper Pena Chronic kidney disea se, stage 4 (severe) N18.4 ; Elevated prostate specific antigen (PSA) R97.20 ; Essential hypertension I10 ; Renal osteodystrophy N25.0 ; Secondary hyperparathyroidism, not elsewhere classified E21.1 ; Abnormal results of thyroid function studies R94.6 and Acquired absence of kidney Z90.5 [place] [facility] [address] [address] 02/03/2025 Cooper Pena Chronic kidney disea se, stage 4 (severe) N18.4 ; Anemia, unspecified D64.9 ; Heart failure, unspecified I50.9 ; Renal osteodystrophy N25.0 ; Secondary hyperparathyroidism, not elsewhere classified E21.1 ; Vitamin D deficiency, unspecified E55.9 ; Essential hypertension I10 ; Hypothyroidism, unspecified E03.9 ; Acquired absence of kidney Z90.5 and Sciatica, unspecified side M54.30 [facility] [place] [facility] [address] [place] [address] 05/05/2025 Cooper Pena Chronic kidney disea se, [...] Notes 07/08/2024 Anemia, unspecified (ICD-10 - D64.9) 08/26/2024 Anemia, unspecified (ICD-10 - D64.9) 08/26/2024 Chronic kidney disease, stage 4 (severe) (ICD-10 - N18.4) 11/25/2024 Chronic kidney disease, stage 4 (severe) (ICD-10 - N18.4) 11/25/2024 Elevated prostate specific antigen (PSA) (ICD-10 - R97.20) 02/03/2025 Chronic kidney disease, stage 4 (severe) (ICD-10 - N18.4) 05/05/2025 Chronic kidney disease, stage 4 (severe) (ICD-10 - N18.4) 05/05/2025 Anemia, unspecified (ICD-10 - D64.9) 11/25/2024 Essential hypertension (ICD-10 - I10) 02/03/2025 Anemia, unspecified (ICD-10 - D64.9) 08/26/2024 Heart failure, unspecified (ICD-10 - I50.9) 07/08/2024 Essential hypertension (ICD-10 - I10) 07/08/2024 Hypothyroidism, unspecified (ICD-10 - E03.9) 11/25/2024 Renal osteodystrophy (ICD-10 - N25.0) 08/26/2024 Renal osteodystrophy (ICD-10 - N25.0) 02/03/2025 Heart failure, unspecified (ICD-10 - I50.9) 05/05/2025 Heart failure, unspecified (ICD-10 - I50.9) 05/05/2025 Renal osteodystrophy (ICD-10 - N25.0) 02/03/2025 Renal osteodystrophy (ICD-10 - N25.0) 08/26/2024 Secondary hyperparathyroidism , not elsewhere classified (ICD-10 - E21.1) 11/25/2024 Secondary hyperparathyroidism , not elsewhere classified (ICD-10 - E21.1) 07/08/2024 Renal osteodystrophy (ICD-10 - N25.0) 07/08/2024 Vitamin D deficiency, unspecified (ICD-10 - E55.9) 02/03/2025 Secondary hyperparathyroidism , not elsewhere classified (ICD-10 - E21.1) 08/26/2024 Vitamin D deficiency, unspecified (ICD-10 - E55.9) 11/25/2024 Abnormal results of thyroid function studies (ICD-10 - R94.6) 05/05/2025 Secondary hyperparathyroidism , not elsewhere classified (ICD-10 - E21.1) 05/05/2025 Vitamin D deficiency, unspecified (ICD-10 - E55.9) 11/25/2024 Acquired absence of kidney (ICD-10 - Z90.5) 08/26/2024 Essential hypertension (ICD-10 - I10) 02/03/2025 Vitamin D deficiency, unspecified (ICD-10 - E55.9) 07/08/2024 Heart failure, unspecified (ICD-10 - I50.9) 08/26/2024 Hypothyroidism, unspecified (ICD-10 - E03.9) 07/08/2024 Secondary hyperparathyroidism , not elsewhere classified (ICD-10 - E21.1) 02/03/2025 Essential hypertension (ICD-10 - I10) 05/05/2025 Essential hypertension (ICD-10 - I10) 05/05/2025 Hypothyroidism, unspecified (ICD-10 - E03.9) 07/08/2024 Chronic kidney disease, stage 4 (severe) (ICD-10 - N18.4) 02/03/2025 Hypothyroidism, unspecified (ICD-10 - E03.9) 02/03/2025 Acquired absence of kidney (ICD-10 - Z90.5) 05/05/2025 Acquired absence of kidney (ICD-10 - Z90.5) 05/05/2025 Sciatica, unspecified side (ICD-10 - M54.30) 02/03/2025 Sciatica, unspecified side (ICD-10 - M54.30) Plan Of Treatment Next Appt Details Provider Name:Cooper Pena , 06/30/2025 01:45:00 PM, [address], [address], [place], [address],
[2025-06-27 13:42] LABS: Add Urine Microscopic? NO; Appearance Urine Clear (Clear); Glucose Urine UA 3+ mg/dL (Negative); Leukocyte Esterase Ur Negative LEU/UL (Negative); Nitrate Urine Negative (Negative); Specific Grav Ur 1.012 (1.001-1.035)
[2025-06-27 13:45] LABS: Alanine Aminotransferase 11 U/L (6-50); Albumin Level 3.9 g/dL (3.5-5.1); Alkaline Phosphatase 58 U/L (38-126); Anion Gap 5 mmol/L (4-12); Aspartate Amino Transferase 14 U/L (17-59); Bilirubin,Total 1.0 mg/dL (0.2-1.3); Blood Urea Nitrogen 37 mg/dL (9-20); Calcium 9.1 mg/dL (8.4-10.2); Carbon Dioxide 35 mmol/L (22-30); Chloride 96 mmol/L (98-107); Estimated Glomerular Filt Rate 25; Glucose 81 mg/dL (65-110); Potassium 3.4 mmol/L (3.4-5.0); Sodium 136 mmol/L (137-145); Total Protein 7.0 g/dL (6.3-8.2); Uric Acid 5.2 mg/dL (3.5-8.5)
[2025-06-27 16:00] LABS: Total Protein Urine Random 10 mg/dL
[2025-06-27 16:02] LABS: MALB Creatinine Ratio 9.9 mg/g (0-30)
[2025-06-27 16:24] LABS: Parathyroid Intact 39.1 pg/mL (14.5-75.2)
[2025-06-28 10:09] LABS: Chloride, Urine 52 mmol/L (Not Estab.)
[2025-07-14 07:59] LABS: Osmolality, Urine 358
== END 2025-06-27 12:47 | disposition home or self-care (01) ==
PROVIDERS: PCP Internal Medicine; Visit Provider Specialist
DX: N18.4 Chronic kidney disease, stage 4 (severe) (principal); E21.3 Hyperparathyroidism, unspecified; E55.9 Vitamin D deficiency, unspecified; D64.9 Anemia, unspecified; R94.6 Abnormal results of thyroid function studies; R82.90 Unspecified abnormal findings in urine; N39.0 Urinary tract infection, site not specified; R35.0 Frequency of micturition
CPT/HCPCS: 36415; 80053; 81003; 81050; 82043; 82306; 82436; 83935; 83970; 84133; 84156; 84300; 84550

== ENCOUNTER 2025-07-04 09:56 | Outpatient (CLI) | payer MEDICARE, MEDICAID, SELFPAY ==
--- NOTE | ~2025-07-04 | CT_ITS ---
EXAMINATION: CT cervical spine wo elsi, 07/04/2025 10:00 CDT HISTORY: cervicalgia COMPARISON: No comparisons available. Technique: Axial images were obtained of the spine per protocol. One or more of the following dose reduction techniques were used: automated exposure control, adjustment of the mA and/or kV according to patient size, use of iterative reconstruction technique. Unless otherwise stated, incidental findings do not require dedicated follow up imaging Findings: Grade 1 anterolisthesis of C3 on C4, C4-C5 and C7 on T1. No fracture is identified. Severe loss of disc height at C3-4, C4-5 and C5-6 and C6-7 with partial fusion of the disc space at C5-6 and C6-7 with moderate to severe canal and foraminal stenosis, outpatient MRI is suggested. Soft tissues unremarkable Impression: No acute abnormality. Reviewed, dictated and finalized at location A. Impression: No acute abnormality.
== END 2025-07-04 09:57 | disposition home or self-care (01) ==
LOC: MICIMG 09:58
PROVIDERS: PCP Internal Medicine; Visit Provider Nurse Practitioner Family
DX: M54.2 Cervicalgia (principal)
CPT/HCPCS: 72125

== ENCOUNTER 2025-07-26 12:31 | Outpatient (CLI) | payer MEDICARE, MEDICAID, SELFPAY ==
--- OUTSIDE RECORDS SUMMARY | 2024-11-25 07:30 | XMS_ITS ---
Author Organization [facility] Address [address] [address] [place] [address] Care Team Providers Care Prize Coordinator Name Role Phone JeanÓscarCooper Unavailable [phone] Medications Medication SIG (Take, Route, Fr equency, Duration) Notes Start Date End Date Status Allopurinol 300 MG 2 tablet Orally Once a day; Duration: 90 days 04/26/2024 04/21/2025 Active Calcitriol 0.25 MCG TAKE 1 CAPSULE BY [facility] TWICE DAILY; Duration: 90 Active Allopurinol 100 MG 1 tablet Orally Once a day; Duration: 90 day(s) 04/22/2024 01/17/2025 Active Social History Sex Assigned At : Social History Observation Description Sex Assigned At Male Problems Problem Type SNOMED Code ICD Code Onset Dates Problem Status W/U Status Risk Notes Problem Absent kidney (298711391) Acquired absence of kidney (Z90.5) Active confirmed Encounters Encounter Location Date Provider Diagnosis [place] [facility] [address] [facility] [address] [place] [address] 11/25/2024 Cooper Pena Chronic kidney disea se, [...] Next Appt Details Provider Name:Cooper Jean , 07/28/2025 01:30:00 PM, 2043 [facility] [address], [address], Progress Notes * ZACK FONTENOTDOB: [birth year] (74 yo M)Acc No.[id number]:11/25/2024 Progress Notes Patient: ZACK DURAN Provider: Wendy ANDERSON MD, F.A.C.P, F.A.S.N. :1950 A ge:74 Y S ex:Male Date:11/25/2024 Address:[address] [place], [place] [phone] Subjective: * Chief Complaints: * * Medical [...] Treatment: * Billing Information: * Visit Code: 59677 Office Visit, Est Pt., Level 4. * Procedure Codes: * Electronic signature of Azalea Pena MD on 07/26/2025 at 12:43 PM CDT Sign off status: Pending * Provider: Wendy ANDERSON MD, F.A.C.P, F.A.S.N. Date: 0 11/25/2024 Generated for Printing/Faxing/eTransmitting on: 0 07/26/2025 12:43 PM CDT
--- OUTSIDE RECORDS SUMMARY | 2025-02-03 07:45 | XMS_ITS ---
Author Organization [facility] Address [address] [place] [address] Care Team Providers Care White Sidewall Tire Buffer Name Role Phone JeanDianaCooper Unavailable [phone] Social History Sex Assigned At : Social History Observation Description Sex Assigned At Male Problems Problem Type SNOMED Code ICD Code Onset Dates Problem Status W/U Status Risk Notes Problem Sciatica (50107243) Sciatica, unspecified side (M54.30) Active confirmed Encounters Encounter Location Date Provider Diagnosis [place] [facility] 2043 [facility] 15 [place] [address] 02/03/2025 Cooper Pena Chronic kidney disea se, [...] Name:Cooper Jean , 07/28/2025 01:30:00 PM, 2043 [facility] [address], [address], Progress Notes * ZACK FONTENOTDOB: [birth year] (74 yo M)Acc No.[id number]:02/03/2025 Progress Notes Patient: ZACK DURAN Provider: Wendy ANDERSON MD, F.A.C.P, F.A.S.N. :1950 A ge:74 Y S ex:Male Date:02/03/2025 Address:[address] [place], [place] [id number] Subjective: * Chief Complaints: * * Medical [...] Treatment: * Billing Information: * Visit Code: 18054 Office Visit, Est Pt., Level 4. * Procedure Codes: * Electronic signature of Azalea Pena MD on 07/26/2025 at 12:42 PM CDT Sign off status: Pending * Provider: Wendy ANDERSON MD, F.A.C.P, F.A.S.N. Date: 0 02/03/2025 Generated for Printing/Faxing/eTransmitting on: 0 07/26/2025 12:42 PM CDT
--- OUTSIDE RECORDS SUMMARY | 2025-04-21 12:00 | XMS_ITS ---
Author Organization [facility] Address [address] [place] [address] Care Team Providers Care Loading Rack Supervisor Name Role Phone JeanDianaCooper Unavailable [phone] Social History Sex Assigned At : Social History Observation Description Sex Assigned At Male Encounters Encounter Location Date Provider Diagnosis [place] [facility] [address]43 [place] [address] 04/21/2025 Cooper Pena Plan Of Treatment Next Appt Details Provider Name:Cooper Pena , 07/28/2025 01:30:00 PM, [address] [address], [place], [address], Progress Notes * ZACK FONTENOTDOB: 9 (74 yo M)Acc No.[id number]:04/21/2025 Progress Notes Patient: ZACK DURAN Provider: Wendy ANDERSON MD, Elise.Beulah.C.P, F.A.S.N. :1950 A ge:74 Y S ex:Male Date:04/21/2025 Address:[address] [place], [place] [id number] Subjective: * Chief Complaints: * * Medical History: Objective: * Vitals: Assessment: Plan: * Treatment: * Billing Information: * Visit Code: * Procedure Codes: * Electronic signature of Azalea Pena MD on 07/26/2025 at 12:43 PM CDT Sign off status: Pending * Provider: Wendy ANDERSON MD, Jluis.C.P, F.A.S.N. Date: 0 04/21/2025 Generated for Printing/Faxing/eTransmitting on: 0 07/26/2025 12:43 PM CDT
--- OUTSIDE RECORDS SUMMARY | 2025-05-05 09:15 | XMS_ITS ---
Author Organization [facility] Address [address] [place] [address] Care Team Providers Care C 13 Catapult Operator Name Role Phone PenaCooper Unavailable [phone] Social History Sex Assigned At : Social History Observation Description Sex Assigned At Male Encounters Encounter Location Date Provider Diagnosis [facility] [place] [facility] [address] [place] [address] 05/05/2025 Cooper Pena Chronic kidney disea se, [...] Name:Cooper Pena , 07/28/2025 01:30:00 PM, [address] [facility], [facility] 15, [place], [address], Progress Notes * ZACK FONTENOTDOB: [birth year] (74 yo M)Acc No.[id number]:05/05/2025 Progress Notes Patient: ZACK DURAN Provider: Wendy ANDERSON MD, F.A.C.P, F.A.S.N. :1950 A ge:74 Y S ex:Male Date:05/05/2025 Address:[address] [place], [place] [phone] Subjective: * Chief Complaints: * * Medical [...] Treatment: * Billing Information: * Visit Code: 14309 Office Visit, Est Pt., Level 4. * Procedure Codes: * Electronic signature of Azalea Pena MD on 07/26/2025 at 12:42 PM CDT Sign off status: Pending * Provider: Wendy ANDERSON MD, F.Beulah.C.P, F.A.S.N. Date: 0 05/05/2025 Generated for Printing/Faxing/eTransmitting on: 0 07/26/2025 12:42 PM CDT
--- OUTSIDE RECORDS SUMMARY | 2025-06-30 11:30 | XMS_ITS ---
Author Organization [facility] Address [address] [place] [address] Care Team Providers Care Traveling Engineer Name Role Phone JeanDianaCooper Unavailable [phone] Social History Sex Assigned At : Social History Observation Description Sex Assigned At Male Problems Problem Type SNOMED Code ICD Code Onset Dates Problem Status W/U Status Risk Notes Problem Glycosuria (35651816) Glycosuria (R81) Active confirmed Problem Hypokalemia (75004572) Hypokalemia (E87.6) Active confirmed Encounters Encounter Location Date Provider Diagnosis [place] [facility] 2043 [facility] 15 [place] [address] 06/30/2025 Cooper Pena Chronic kidney disea se, [...] Name:Cooper Jean , 07/28/2025 01:30:00 PM, [address]43 [facility] [address], [address], Progress Notes * ZACK FONTENOTDOB: [birth year] (74 yo M)Acc No.[id number]:06/30/2025 Patient: ZACK DURAN Provider: Wendy ANDERSON MD, F.A.C.P, F.A.S.N. :1950 A ge:74 Y S ex:Male Date:06/30/2025 Address:[address] [place], [place] [id number] Subjective: * Chief Complaints: Objective: Assessment: * [...] Plan: * Billing Information: * Visit Code: 19641 Office Visit, Est Pt., Level 5. * Procedure Codes: * Electronic signature of Azalea Pena MD on 07/26/2025 at 12:42 PM CDT Sign off status: Pending * Provider: Wendy ANDERSON MD, F.A.C.P, F.A.S.N. Date: 0 06/30/2025 Generated for Printing/Faxing/eTransmitting on: 0 07/26/2025 12:42 PM CDT
--- OUTSIDE RECORDS SUMMARY | 2025-07-26 12:42 | XMS_ITS | Patient Health Record ---
Author Organization [facility] Address [address] [place] [address] Care Team Providers Care Miner Placer Name Role Phone Cooper Pena Unavailable [phone] Reason For Referral No Information Medications Medication SIG (Take, Route, Fr equency, Duration) Notes Start Date End Date Status Calcitriol 0.25 MCG TAKE 1 CAPSULE BY [facility] TWICE DAILY; Duration: 90 Active Social History Sex Assigned At : Social History Observation Description Sex Assigned At Male Problems Problem Type SNOMED Code ICD Code Onset Dates Problem Status W/U Status Risk Notes Problem Anemia (288830300) Anemia, unspecified (D64.9) Active confirmed Problem Hypothyroidism (35235949) Hypothyroidism, unspecified (E03.9) Active confirmed Problem Secondary hyperparathyroidism (62253140) Secondary hyperparathyroid ism, not elsewhere classified (E21.1) Active confirmed Problem Vitamin D deficiency (27200512) Vitamin D deficiency, unspecified (E55.9) Active confirmed Problem Hypokalemia (72317587) Hypokalemia (E87.6) Active confirmed Problem Heart failure (32697842) Heart failure, unspecified (I50.9) Active confirmed Problem Sciatica (15493463) Sciatica, unspecified side (M54.30) Active confirmed Problem Chronic kidney disease stage 4 (820228513) Chronic kidney disease, stage 4 (severe) (N18.4) Active confirmed Problem Renal osteodystrophy (15751767) Renal osteodystrophy (N25.0) Active confirmed Problem Glycosuria (54712787) Glycosuria (R81) Active c onfirmed Problem Absent kidney (083151928) Acquired absence of kidney (Z90.5) Active confirmed Problem Essential hypertension (16976153) Essential hypertension (I10) Active confirmed Encounters Encounter Location Date Provider Diagnosis [facility] [address] [place] [address] 08/26/2024 Cooepr Pena Anemia, unspecified D64.9 ; Chronic kidney disease, stage 4 (severe) N18.4 ; Heart failure, unspecified I50.9 ; Renal osteodystrophy N25.0 ; Secondary hyperparathyroidism, not elsewhere classified E21.1 ; Vitamin D deficiency, unspecified E55.9 ; Essential hypertension I10 and Hypothyroidism, unspecified E03.9 [facility] [address] [place] [address] 11/25/2024 Cooper Pena Chronic kidney disea se, stage 4 (severe) N18.4 ; Elevated prostate specific antigen (PSA) R97.20 ; Essential hypertension I10 ; Renal osteodystrophy N25.0 ; Secondary hyperparathyroidism, not elsewhere classified E21.1 ; Abnormal results of thyroid function studies R94.6 and Acquired absence of kidney Z90.5 [facility] [address] [address] 02/03/2025 Cooper Pena Chronic kidney disea se, stage 4 (severe) N18.4 ; Anemia, unspecified D64.9 ; Heart failure, unspecified I50.9 ; Renal osteodystrophy N25.0 ; Secondary hyperparathyroidism, not elsewhere classified E21.1 ; Vitamin D deficiency, unspecified E55.9 ; Essential hypertension I10 ; Hypothyroidism, unspecified E03.9 ; Acquired absence of kidney Z90.5 and Sciatica, unspecified side M54.30 [facility] [place] [facility] [address] [facility] [address] [place] [address] 05/05/2025 Cooper Pena Chronic kidney disea se, stage 4 (severe) N18.4 ; Anemia, unspecified D64.9 ; Heart failure, unspecified I50.9 ; Renal osteodystrophy N25.0 ; Secondary hyperparathyroidism, not elsewhere classified E21.1 ; Vitamin D deficiency, unspecified E55.9 ; Essential hypertension I10 ; Hypothyroidism, unspecified E03.9 ; Acquired absence of kidney Z90.5 and Sciatica, unspecified side M54.30 [facility] [address] [address] 06/30/2025 Cooper Pena Chronic kidney disea se, [...] stage 4 (severe) (ICD-10 - N18.4) 06/30/2025 Chronic kidney disease, stage 4 (severe) (ICD-10 - N18.4) 06/30/2025 Anemia, unspecified (ICD-10 - D64.9) 05/05/2025 Anemia, unspecified (ICD-10 - D64.9) 11/25/2024 Essential hypertension (ICD-10 - I10) 02/03/2025 Anemia, unspecified (ICD-10 - D64.9) 08/26/2024 Heart failure, unspecified (ICD-10 - I50.9) 11/25/2024 Renal osteodystrophy (ICD-10 - N25.0) 08/26/2024 Renal osteodystrophy (ICD-10 - N25.0) 02/03/2025 Heart failure, unspecified (ICD-10 - I50.9) 05/05/2025 Heart failure, unspecified (ICD-10 - I50.9) 06/30/2025 Heart failure, unspecified (ICD-10 - I50.9) 06/30/2025 Renal osteodystrophy (ICD-10 - N25.0) 05/05/2025 Renal osteodystrophy (ICD-10 - N25.0) 02/03/2025 [...] not elsewhere classified (ICD-10 - E21.1) 06/30/2025 Secondary hyperparathyroidism , not elsewhere classified (ICD-10 - E21.1) 06/30/2025 Vitamin D deficiency, unspecified (ICD-10 - E55.9) 05/05/2025 Vitamin D deficiency, unspecified (ICD-10 - E55.9) 11/25/2024 Acquired absence of kidney (ICD-10 - Z90.5) 08/26/2024 Essential hypertension (ICD-10 - I10) 02/03/2025 Vitamin D deficiency, unspecified (ICD-10 - E55.9) 08/26/2024 Hypothyroidism, unspecified (ICD-10 - E03.9) 02/03/2025 Essential hypertension (ICD-10 - I10) 05/05/2025 Essential hypertension (ICD-10 - I10) 06/30/2025 Essential hypertension (ICD-10 - I10) 06/30/2025 Hypothyroidism, unspecified (ICD-10 - E03.9) 05/05/2025 Hypothyroidism, unspecified (ICD-10 - E03.9) 02/03/2025 Hypothyroidism, unspecified (ICD-10 - E03.9) 02/03/2025 Acquired absence of kidney (ICD-10 - Z90.5) 05/05/2025 Acquired absence of kidney (ICD-10 - Z90.5) 06/30/2025 Acquired absence of kidney (ICD-10 - Z90.5) 06/30/2025 Sciatica, unspecified side (ICD-10 - M54.30) 05/05/2025 Sciatica, unspecified side (ICD-10 - M54.30) 02/03/2025 Sciatica, unspecified side (ICD-10 - M54.30) 06/30/2025 Glycosuria (ICD-10 - R81) 06/30/2025 Hypokalemia (ICD-10 - E87.6) Plan Of Treatment Next Appt Details Provider Name:Cooper Pena , 07/28/2025 01:30:00 PM, [address], [facility] [address], [place], [address],
--- OUTSIDE RECORDS SUMMARY | 2025-07-26 12:42 | XMS_ITS | Clinical Summary ---
Author Organization [facility] [employer] Address [address] [place] [address] Care Team Providers Care Coin Dealer Name Role Phone Unavailable Primary Care Provider Unavailabl e Source Comments [facility] [employer],non-owned Affiliates and Associated Physician Practices is amultiple site organization consisting of ambulatory clinics and hospital sitesin [place], [place] and [place]. This disclosure is being madepursuant to the Care Everywhere program and may not contain all information available regarding this patient. 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
--- OUTSIDE RECORDS SUMMARY | 2025-07-26 12:43 | XMS_ITS | Clinical Summary ---
Author Organization [facility] Address [address] [place] [address] Care Team Providers Care Metaphysician Name Role Phone Unavailable Primary Care Provider [...] Td Vaccines ( 1 - Tdap) 1968 Pneumococcal Vaccine: 50+ Ye ars (1 of 1 - PCV) 1999 Zoster Vaccines (1 of 2) 1999 RSV Immunization or 60+ Years (1 - 1-dose 75+ series) 2024 COVID-19 Vaccine ( - 2023-2 5 season) 2025 Meningococcal B Vaccine Aged Out No l onger eligible based on patient's age to complete this topic Meningococcal Vaccine Aged Out No jose cory eligible based on patient's age to complete this topic RSV Immunizations Under 20 Months Aged Out No longer eligible based on patient's age to complete this topic
[2025-07-26 13:08] LABS: Add Urine Microscopic? NO; Appearance Urine Clear (Clear); Glucose Urine UA 3+ mg/dL (Negative); Leukocyte Esterase Ur Negative LEU/UL (Negative); Nitrate Urine Negative (Negative); Specific Grav Ur 1.020 (1.001-1.035)
[2025-07-26 13:21] LABS: Alanine Aminotransferase 11 U/L (6-50); Albumin Level 3.9 g/dL (3.5-5.1); Alkaline Phosphatase 71 U/L (38-126); Aspartate Amino Transferase 13 U/L (17-59); Bilirubin,Total 0.9 mg/dL (0.2-1.3); Blood Urea Nitrogen 41 mg/dL (9-20); Calcium 9.7 mg/dL (8.4-10.2); Carbon Dioxide > 40 mmol/L (22-30); Chloride 95 mmol/L (98-107); Estimated Glomerular Filt Rate 22; Glucose 90 mg/dL (65-110); Potassium 3.3 mmol/L (3.4-5.0); Sodium 138 mmol/L (137-145); Total Protein 7.1 g/dL (6.3-8.2); Uric Acid 4.7 mg/dL (3.5-8.5)
[2025-07-26 13:27] LABS: MALB Creatinine Ratio 5.1 mg/g (0-30)
[2025-07-26 13:28] LABS: Total Protein Urine Random 9 mg/dL; Ur Ttl Prot Creatinine Ratio 0.06 mg/mg (0-0.20)
[2025-07-27 11:08] LABS: Chloride, Urine 82 mmol/L (Not Estab.)
[2025-08-15 11:40] LABS: Osmolality, Urine 587
== END 2025-07-26 12:32 | disposition home or self-care (01) ==
LOC: ANHLAB 12:36
PROVIDERS: PCP Internal Medicine; Visit Provider Specialist
DX: N18.30 Chronic kidney disease, stage 3 unspecified (principal); E21.3 Hyperparathyroidism, unspecified; E55.9 Vitamin D deficiency, unspecified; R82.90 Unspecified abnormal findings in urine
CPT/HCPCS: 36415; 80053; 81003; 82043; 82306; 82436; 82570; 83935; 83970; 84133; 84156; 84300; 84550

== ENCOUNTER 2025-09-11 12:53 | Outpatient (CLI) | payer MEDICARE, MEDICAID, SELFPAY ==
--- OUTSIDE RECORDS SUMMARY | 2024-04-22 06:30 | XMS_ITS ---
Author Organization [facility] Office Address [address] [place] [address] Care Team Providers Care Dehydrator Name Role Phone PenaÓscarCooper Unavailable [phone] Medications Medication SIG (Take, Route, Fr equency, Duration) Notes Start Date End Date Status Calcitriol 0.25 MCG TAKE 1 CAPSULE BY NOÉ [facility] TWICE DAILY; Duration: 90 Active Social History Sex Assigned At : Social History Observation Description Sex Assigned At Male Encounters Encounter Location Date Provider Diagnosis [place] [facility] [address] [facility] [address] [place] [address] 04/22/2024 Cooper Pena Chronic kidney disea se, stage 3a N18.31 ; Anemia, unspecified D64.9 ; Heart failure, unspecified I50.9 ; Renal osteodystrophy N25.0 ; Secondary hyperparathyroidism, not elsewhere classified E21.1 and Vitamin D deficiency, unspecified E55.9 Assessments Encounter Date Diagnosis (ICD Code) Assessment Notes Treatment Notes Treatment Clinical Notes Section Notes 04/22/2024 Chronic kidney disease, stage 3a (ICD-10 - N18.31) 04/22/2024 Anemia, unspecified (ICD-10 - D64.9) 04/22/2024 Heart failure, unspecified (ICD-10 - I50.9) 04/22/2024 Renal osteodystrophy (ICD-10 - N25.0) 04/22/2024 Secondary hyperparathyroidism , not elsewhere classified (ICD-10 - E21.1) 04/22/2024 Vitamin D deficiency, unspecified (ICD-10 - E55.9) Plan Of Treatment Next Appt Details Provider Name:Cooper Pena , 09/15/2025 05:30:00 PM, [address]43 [facility], [facility], [place], [address], Progress Notes * ZACK FONTENOTDOB: 9 (74 yo M)Acc No.[id number]:04/22/2024 Progress Notes Patient: ZACK DURAN Provider: Wendy ANDERSON MD, Jluis.C.P, F.A.S.N. :1950 A ge:73 Y S ex:Male Date:04/22/2024 Address:[address] [place], [place] [id number] Subjective: * Chief Complaints: * * Medical History: * Medications: T aking Calcitriol 0.25 MCG Capsule TAKE 1 CAPSULE BY MOUTH TWICE DAILY Objective: * Vitals: Assessment: * Assessment: 1. C hronic kidney disease, stage 3a - N18.31 (Primary) 2 . A nemia, unspecified - D64.9 3 . H eart failure, unspecified - I50.9 4 . R enal osteodystrophy - N25.0 5 . S econdary hyperparathyroidism, not elsewhere classified - E21.1 6 . V itamin D deficiency, unspecified - E55.9 Plan: * Treatment: * Billing Information: * Visit Code: 84997 Office Visit, Est Pt., Level 4. * Procedure Codes: * Electronic signature of Azalea Pena MD on 09/11/2025 at 02:01 PM WETLANDS TECHNICIAN Sign off status: Pending * Provider: Wendy ANDERSON MD, Elise.Beulah.Romy.P, F.A.S.N. Date: 0 04/22/2024 Generated for Printing/Faxing/eTransmitting on: 11/11/2024 02:01 PM WETLANDS TECHNICIAN
--- OUTSIDE RECORDS SUMMARY | 2024-07-08 06:45 | XMS_ITS ---
Author Organization [facility] Office Address [address] [place] [address] Care Team Providers Care Winery Cellar Hand Name Role Phone JeanDianaCooper Unavailable [phone] Medications Medication SIG (Take, Route, Fr equency, Duration) Notes Start Date End Date Status Calcitriol 0.25 MCG TAKE 1 CAPSULE BY NOÉ [facility] TWICE DAILY; Duration: 90 Active Allopurinol 100 MG 1 tablet Orally Once a day; Duration: 90 day(s) 04/22/2024 01/17/2025 Active Allopurinol 300 MG 2 tablet Orally Once a day; Duration: 90 days 04/26/2024 04/21/2025 Active Social History Sex Assigned At : Social History Observation Description Sex Assigned At Male Problems Problem Type SNOMED Code ICD Code Onset Dates Problem Status W/U Status Risk Notes Problem Essential hypertension (90471555) Essential hypertension (I10) Active confirmed Problem Hypothyroidism (17917351) Hypothyroidism, unspecified (E03.9) Active confirmed Problem Chronic kidney disease stage 4 (794699479) Chronic kidney disease, stage 4 (severe) (N18.4) Active confirmed Encounters Encounter Location Date Provider Diagnosis [place] [facility] 2043 [facility] 15 [place] [address] 07/08/2024 Cooper Pena Anemia, unspecified D64.9 ; Essential hypertension I10 ; Hypothyroidism, unspecified E03.9 ; Renal osteodystrophy N25.0 ; Vitamin D deficiency, unspecified E55.9 ; Heart failure, unspecified I50.9 ; Secondary hyperparathyroidism, not elsewhere classified E21.1 and Chronic kidney disease, stage 4 (severe) N18.4 Assessments Encounter Date Diagnosis (ICD Code) Assessment Notes Treatment Notes Treatment Clinical Notes Section Notes 07/08/2024 Anemia, unspecified (ICD-10 - D64.9) 07/08/2024 Essential hypertension (ICD-10 - I10) 07/08/2024 Hypothyroidism, unspecified (ICD-10 - E03.9) 07/08/2024 Renal osteodystrophy (ICD-10 - N25.0) 07/08/2024 Vitamin D deficiency, unspecified (ICD-10 - E55.9) 07/08/2024 Heart failure, unspecified (ICD-10 - I50.9) 07/08/2024 Secondary hyperparathyroidism , not elsewhere classified (ICD-10 - E21.1) 07/08/2024 Chronic kidney disease, stage 4 (severe) (ICD-10 - N18.4) Plan Of Treatment Next Appt Details Provider Name:Cooper Jean , 09/15/2025 05:30:00 PM, [address]43 [facility] [address], [address], Progress Notes * ZACK FNOTENOTDOB: [birth year] (74 yo M)Acc No.[id number]:07/08/2024 Progress Notes Patient: ZACK DURAN Provider: Wendy ANDERSON MD, F.A.C.P, F.A.S.N. :1950 A ge:73 Y S ex:Male Date:07/08/2024 Address:[address] [place], [place] [phone] Subjective: * Chief Complaints: * * Medical History: * Medications: T aking Allopurinol 100 MG Tablet 1 tablet Orally Once a day , stop date 01/17/2025, Taking Allopurinol 300 MG Tablet 2 tablet Orally Once a day , stop date 04/21/2025, Taking Calcitriol 0.25 MCG Capsule TAKE 1 CAPSULE BY MOUTH TWICE DAILY Objective: * Vitals: Assessment: * Assessment: 1. A nemia, unspecified - D64.9 2 . E ssential hypertension - I10 ? 3 . H ypothyroidism, unspecified - E03.9 4 . R enal osteodystrophy - N25.0 5 . V itamin D deficiency, unspecified - E55.9 6 . H eart failure, unspecified - I50.9 7 . S econdary hyperparathyroidism, not elsewhere classified - E21.1 8 . C hronic kidney disease, stage 4 (severe) - N18.4 Plan: * Treatment: * Billing Information: * Visit Code: 53977 Office Visit, Est Pt., Level 4. * Procedure Codes: * Electronic signature of Azalea Pena MD on 09/11/2025 at 02:02 PM TASSEL MAKER Sign off status: Pending * Provider: Wendy ANDERSON MD, F.A.C.P, F.A.S.N. Date: 0 07/08/2024 Generated for Printing/Faxing/eTransmitting on: 11/11/2024 02:02 PM TASSEL MAKER
--- OUTSIDE RECORDS SUMMARY | 2024-08-26 06:15 | XMS_ITS ---
Author Organization [facility] Office Address [address] [place] [address] Care Team Providers Care Literacy Education Professor Name Role Phone PenaCooper Unavailable [phone] Medications Medication SIG (Take, Route, Fr equency, Duration) Notes Start Date End Date Status Calcitriol 0.25 MCG TAKE 1 CAPSULE BY NOÉ [facility] TWICE DAILY; Duration: 90 Active Allopurinol 300 MG 2 tablet Orally Once a day; Duration: 90 days 04/26/2024 04/21/2025 Active Allopurinol 100 MG 1 tablet Orally Once a day; Duration: 90 day(s) 04/22/2024 01/17/2025 Active Social History Sex Assigned At : Social History Observation Description Sex Assigned At Male Encounters Encounter Location Date Provider Diagnosis [facility] [place] [facility] [address] [facility] [address] [place] [address] 08/26/2024 Cooper Pena Anemia, unspecified D64.9 ; Chronic kidney disease, stage 4 (severe) N18.4 ; Heart failure, unspecified I50.9 ; Renal osteodystrophy N25.0 ; Secondary hyperparathyroidism, not elsewhere classified E21.1 ; Vitamin D deficiency, unspecified E55.9 ; Essential hypertension I10 and Hypothyroidism, unspecified E03.9 Assessments Encounter Date Diagnosis (ICD Code) Assessment Notes Treatment Notes Treatment Clinical Notes Section Notes 08/26/2024 Anemia, unspecified (ICD-10 - D64.9) 08/26/2024 Chronic kidney disease, stage 4 (severe) (ICD-10 - N18.4) 08/26/2024 Heart failure, unspecified (ICD-10 - I50.9) 08/26/2024 Renal osteodystrophy (ICD-10 - N25.0) 08/26/2024 Secondary hyperparathyroidism , not elsewhere classified (ICD-10 - E21.1) 08/26/2024 Vitamin D deficiency, unspecified (ICD-10 - E55.9) 08/26/2024 Essential hypertension (ICD-10 - I10) 08/26/2024 Hypothyroidism, unspecified (ICD-10 - E03.9) Plan Of Treatment Next Appt Details Provider Name:Cooper Jean , 09/15/2025 05:30:00 PM, [address] [facility] [address], [address], Progress Notes * ZACK FONTENOTDOB: [birth year] (74 yo M)Acc No.[id number]:08/26/2024 Progress Notes Patient: ZACK DURAN Provider: Wendy ANDERSON MD, F.A.C.P, F.A.S.N. :1950 A ge:73 Y S ex:Male Date:08/26/2024 Address:[address] [place], [place] [phone] Subjective: * Chief Complaints: * * Medical [...] Assessment: 1. C hronic kidney disease, stage 4 (severe) - N18.4 (Primary) 2 . A nemia, unspecified - D64.9 3 . H eart failure, unspecified - I50.9 4 .?Renal osteodystrophy - N25.0 5 . S econdary hyperparathyroidism, not elsewhere classified - E21.1 6 . V itamin D deficiency, unspecified - E55.9 ? 7 . E ssential hypertension - I10 8 . H ypothyroidism, unspecified - E03.9 Plan: * Treatment: * Billing Information: * Visit Code: 14783 Office Visit, Est Pt., Level 4. * Procedure Codes: * Electronic signature of Azalea Pena MD on 09/11/2025 at 02:01 PM SAFETY DIRECTOR Sign off status: Pending * Provider: Wendy ANDERSON MD, F.A.C.P, F.A.S.N. Date: Generated for Printing/Faxing/eTransmitting on: 11/11/2024 02:01 PM SAFETY DIRECTOR
--- OUTSIDE RECORDS SUMMARY | 2024-11-25 06:30 | XMS_ITS ---
Author Organization [facility] Office Address [address] [address] [place] [address] Care Team Providers Care Nuclear Power Reactor Operator Name Role Phone JenaÓscarCooper Unavailable [phone] Medications Medication SIG (Take, Route, Fr equency, Duration) Notes Start Date End Date Status Allopurinol 300 MG 2 tablet Orally Once a day; Duration: 90 days 04/26/2024 04/21/2025 Active Calcitriol 0.25 MCG TAKE 1 CAPSULE BY [facility] TWICE DAILY; Duration: 90 Active Allopurinol 100 MG 1 tablet Orally Once a day; Duration: 90 day(s) 04/22/2024 01/17/2025 Active Social History Sex Assigned At : Social History Observation Description Sex Assigned At Male Problems Problem Type SNOMED Code ICD Code Onset Dates Problem Status W/U Status Risk Notes Problem Absent kidney (209874678) Acquired absence of kidney (Z90.5) Active confirmed Encounters Encounter Location Date Provider Diagnosis [place] [facility] [address] [facility] 15 [place] [address] 11/25/2024 Cooper Pena Chronic kidney disea se, stage 4 (severe) N18.4 ; Elevated prostate specific antigen (PSA) R97.20 ; Essential hypertension I10 ; Renal osteodystrophy N25.0 ; Secondary hyperparathyroidism, not elsewhere classified E21.1 ; Abnormal results of thyroid function studies R94.6 and Acquired absence of kidney Z90.5 Assessments Encounter Date Diagnosis (ICD Code) Assessment Notes Treatment Notes Treatment Clinical Notes Section Notes 11/25/2024 Chronic kidney disease, stage 4 (severe) (ICD-10 - N18.4) 11/25/2024 Elevated prostate specific antigen (PSA) (ICD-10 - R97.20) 11/25/2024 Essential hypertension (ICD-10 - I10) 11/25/2024 Renal osteodystrophy (ICD-10 - N25.0) 11/25/2024 Secondary hyperparathyroidism , not elsewhere classified (ICD-10 - E21.1) 11/25/2024 Abnormal results of thyroid function studies (ICD-10 - R94.6) 11/25/2024 Acquired absence of kidney (ICD-10 - Z90.5) Plan Of Treatment Next Appt Details Provider Name:Cooper Pena , 09/15/2025 05:30:00 PM, [address] [facility] [address], [address], Progress Notes * ZACK FONTENOTDOB: [birth year] (74 yo M)Acc No.[id number]:11/25/2024 Progress Notes Patient: ZACK DURAN Provider: Wendy ANDERSON MD, F.A.C.P, F.A.S.N. :1950 A ge:74 Y S ex:Male Date:11/25/2024 Address:[address] [place], [place] [id number] Subjective: * Chief Complaints: * * Medical [...] 4 (severe) - N18.4 (Primary) 2 . E levated prostate specific antigen (PSA) - R97.20 3 . E ssential hypertension - I10? 4. R enal osteodystrophy - N25.0 5 . S econdary hyperparathyroidism, not elsewhere classified - E21.1 6 . A bnormal results of thyroid function studies - R94.6 7 . A cquired absence of kidney - Z90.5 Plan: * Treatment: * Billing Information: * Visit Code: 97273 Office Visit, Est Pt., Level 4. * Procedure Codes: * Electronic signature of Azalea Pena MD on 09/11/2025 at 02:02 PM DINKEY LOCOMOTIVE OPERATOR Sign off status: Pending * Provider: Wendy ANDERSON MD, F.A.C.P, F.A.S.N. Date: 0 11/25/2024 Generated for Printing/Faxing/eTransmitting on: 1 11/11/2024 02:02 PM DINKEY LOCOMOTIVE OPERATOR
--- OUTSIDE RECORDS SUMMARY | 2025-02-03 06:45 | XMS_ITS ---
Author Organization [facility] Address [address] [place] [address] Care Team Providers Care Checker In Name Role Phone JeanDianaCooper Unavailable [phone] Social History Sex Assigned At : Social History Observation Description Sex Assigned At Male Problems Problem Type SNOMED Code ICD Code Onset Dates Problem Status W/U Status Risk Notes Problem Sciatica (67280903) Sciatica, unspecified side (M54.30) Active confirmed Encounters Encounter Location Date Provider Diagnosis [place] [facility] 2043 [facility] 15 [place] [address] 02/03/2025 Cooper Pena Chronic kidney disea se, stage 4 (severe) N18.4 ; Anemia, unspecified D64.9 ; Heart failure, unspecified I50.9 ; Renal osteodystrophy N25.0 ; Secondary hyperparathyroidism, not elsewhere classified E21.1 ; Vitamin D deficiency, unspecified E55.9 ; Essential hypertension I10 ; Hypothyroidism, unspecified E03.9 ; Acquired absence of kidney Z90.5 and Sciatica, unspecified side M54.30 Assessments Encounter Date Diagnosis (ICD Code) Assessment Notes Treatment Notes Treatment Clinical Notes Section Notes 02/03/2025 Chronic kidney disease, stage 4 (severe) (ICD-10 - N18.4) 02/03/2025 Anemia, unspecified (ICD-10 - D64.9) 02/03/2025 Heart failure, unspecified (ICD-10 - I50.9) 02/03/2025 Renal osteodystrophy (ICD-10 - N25.0) 02/03/2025 Secondary hyperparathyroidism , not elsewhere classified (ICD-10 - E21.1) 02/03/2025 Vitamin D deficiency, unspecified (ICD-10 - E55.9) 02/03/2025 Essential hypertension (ICD-10 - I10) 02/03/2025 Hypothyroidism, unspecified (ICD-10 - E03.9) 02/03/2025 Acquired absence of kidney (ICD-10 - Z90.5) 02/03/2025 Sciatica, unspecified side (ICD-10 - M54.30) Plan Of Treatment Next Appt Details Provider Name:Cooper Jean , 09/15/2025 05:30:00 PM, 2043 [facility] 15, [place], [address], Progress Notes * ZACK FONTENOTDOB: [birth year] (74 yo M)Acc No.[id number]:02/03/2025 Progress Notes Patient: ZACK DURAN Provider: Wendy ANDERSON MD, F.A.C.P, F.A.S.N. :1950 A ge:74 Y S ex:Male Date:02/03/2025 Address:[address] [place], [place] [id number] Subjective: * Chief Complaints: * * Medical History: Objective: * Vitals: Assessment: * Assessment: 1. [...] 8 . H ypothyroidism, unspecified - E03.9 9 . A cquired absence of kidney - Z90.5 1 0. S ciatica, unspecified side - M54.30 Plan: * Treatment: * Billing Information: * Visit Code: 68626 Office Visit, Est Pt., Level 4. * Procedure Codes: * Electronic signature of Azalea Pena MD on 09/11/2025 at 02:01 PM ALTERNATIVE ENERGY ENGINEER Sign off status: Pending * Provider: Wendy ANDERSON MD, F.A.C.P, F.A.S.N. Date: 0 02/03/2025 Generated for Printing/Faxing/eTransmitting on: 1 11/11/2024 02:01 PM ALTERNATIVE ENERGY ENGINEER
--- OUTSIDE RECORDS SUMMARY | 2025-04-21 11:00 | XMS_ITS ---
Author Organization [facility] Address [address] [place] [address] Care Team Providers Care Precision Machine Operator Name Role Phone JeanDianaCooper Unavailable [phone] Social History Sex Assigned At : Social History Observation Description Sex Assigned At Male Encounters Encounter Location Date Provider Diagnosis [place] [facility] [address]43 [place] [address] 04/21/2025 Cooper Pena Plan Of Treatment Next Appt Details Provider Name:Cooper Pena , 09/15/2025 05:30:00 PM, [address] [address], [place], [address], Progress Notes * ZACK FONTENOTDOB: [birth year] (74 yo M)Acc No.[id number]:04/21/2025 Progress Notes Patient: ZACK DURAN Provider: Wendy ANDERSON MD, Elise.Beulah.C.P, F.A.S.N. :1950 A ge:74 Y S ex:Male Date:04/21/2025 Address:[address] [place], [place] [id number] Subjective: * Chief Complaints: * * Medical History: Objective: * Vitals: Assessment: Plan: * Treatment: * Billing Information: * Visit Code: * Procedure Codes: * Electronic signature of Azalea Pena MD on 09/11/2025 at 02:02 PM RUBBER BELT SPLICER Sign off status: Pending * Provider: Wendy ANDERSON MD, Elise.Beulah.C.P, F.A.S.N. Date: 0 04/21/2025 Generated for Printing/Faxing/eTransmitting on: 11/11/2024 02:02 PM RUBBER BELT SPLICER
--- OUTSIDE RECORDS SUMMARY | 2025-05-05 08:15 | XMS_ITS ---
Author Organization [facility] Address [address] [place] [address] Care Team Providers Care Intelligence Chief Name Role Phone PenaCooper Unavailable [phone] Social History Sex Assigned At : Social History Observation Description Sex Assigned At Male Encounters Encounter Location Date Provider Diagnosis [facility] [place] [facility] [address] [place] [address] 05/05/2025 Cooper Pena Chronic kidney disea se, stage [...] Treatment Notes Treatment Clinical Notes Section Notes 05/05/2025 Chronic kidney disease, stage 4 (severe) (ICD-10 - N18.4) 05/05/2025 Anemia, unspecified (ICD-10 - D64.9) 05/05/2025 Heart failure, unspecified (ICD-10 - I50.9) 05/05/2025 Renal osteodystrophy (ICD-10 - N25.0) 05/05/2025 Secondary hyperparathyroidism , not elsewhere classified (ICD-10 - E21.1) 05/05/2025 Vitamin D deficiency, unspecified (ICD-10 - E55.9) 05/05/2025 Essential hypertension (ICD-10 - I10) 05/05/2025 Hypothyroidism, unspecified (ICD-10 - E03.9) 05/05/2025 Acquired absence of kidney (ICD-10 - Z90.5) 05/05/2025 Sciatica, unspecified side (ICD-10 - M54.30) Plan Of Treatment Next Appt Details Provider Name:Cooper Jean , 09/15/2025 05:30:00 PM, 2043 [facility], [facility] 15, [place], [address], Progress Notes * ZACK FONTENOTDOB: [birth year] (74 yo M)Acc No.[id number]:05/05/2025 Progress Notes Patient: ZACK DURAN Provider: Wendy ANDERSON MD, F.A.C.P, F.A.S.N. :1950 A ge:74 Y S ex:Male Date:05/05/2025 Address:[address] [place], [place] [id number] Subjective: * Chief Complaints: * * Medical [...] Treatment: * Billing Information: * Visit Code: 74310 Office Visit, Est Pt., Level 4. * Procedure Codes: * Electronic signature of Azalea Pena MD on 09/11/2025 at 02:02 PM LOUVER MORTISER OPERATOR Sign off status: Pending * Provider: Wendy ANDERSON MD, F.Beulah.C.P, F.A.S.N. Date: 0 05/05/2025 Generated for Printing/Faxing/eTransmitting on: 1 11/11/2024 02:02 PM LOUVER MORTISER OPERATOR
--- OUTSIDE RECORDS SUMMARY | 2025-06-30 10:30 | XMS_ITS ---
Author Organization [facility] Address [address] [place] [address] Care Team Providers Care President Finance Company Name Role Phone JeanDianaCooper Unavailable [phone] Social History Sex Assigned At : Social History Observation Description Sex Assigned At Male Problems Problem Type SNOMED Code ICD Code Onset Dates Problem Status W/U Status Risk Notes Problem Glycosuria (86727393) Glycosuria (R81) Active confirmed Problem Hypokalemia (67608065) Hypokalemia (E87.6) Active confirmed Encounters Encounter Location Date Provider Diagnosis [place] [facility] [address] [facility] 15 [place] [address] 06/30/2025 Cooper Pena Chronic kidney disea se, stage 4 (severe) N18.4 ; Anemia, unspecified D64.9 ; Heart failure, unspecified I50.9 ; Renal osteodystrophy N25.0 ; Secondary hyperparathyroidism, not elsewhere classified E21.1 ; Vitamin D deficiency, unspecified E55.9 ; Essential hypertension I10 ; Hypothyroidism, unspecified E03.9 ; Acquired absence of kidney Z90.5 ; Sciatica, unspecified side M54.30 ; Glycosuria R81 and Hypokalemia E87.6 Assessments Encounter Date Diagnosis (ICD Code) Assessment Notes Treatment Notes Treatment Clinical Notes Section Notes 06/30/2025 Chronic kidney disease, stage 4 (severe) (ICD-10 - N18.4) 06/30/2025 Anemia, unspecified (ICD-10 - D64.9) 06/30/2025 Heart failure, unspecified (ICD-10 - I50.9) 06/30/2025 Renal osteodystrophy (ICD-10 - N25.0) 06/30/2025 Secondary hyperparathyroidism , not elsewhere classified (ICD-10 - E21.1) 06/30/2025 Vitamin D deficiency, unspecified (ICD-10 - E55.9) 06/30/2025 Essential hypertension (ICD-10 - I10) 06/30/2025 Hypothyroidism, unspecified (ICD-10 - E03.9) 06/30/2025 Acquired absence of kidney (ICD-10 - Z90.5) 06/30/2025 Sciatica, unspecified side (ICD-10 - M54.30) 06/30/2025 Glycosuria (ICD-10 - R81) 06/30/2025 Hypokalemia (ICD-10 - E87.6) Plan Of Treatment Next Appt Details Provider Name:Cooper Jean , 09/15/2025 05:30:00 PM, [address] [facility] [address], [address], Progress Notes * ZACK FONTENOTDOB: [birth year] (74 yo M)Acc No.[id number]:06/30/2025 Patient: ZACK DURAN Provider: Wendy ANDERSON MD, F.A.C.P, F.A.S.N. :1950 A ge:74 Y S ex:Male Date:06/30/2025 Address:[address] [place], [place] [id number] Subjective: * Chief Complaints: Objective: Assessment: * Assessment: 1. C hronic kidney [...] 0. S ciatica, unspecified side - M54.30 1 1. G lycosuria - R81 1 2. H ypokalemia - E87.6 Plan: * Billing Information: * Visit Code: 26560 Office Visit, Est Pt., Level 5. * Procedure Codes: * Electronic signature of Azalea Pena MD on 09/11/2025 at 02:01 PM PRECIPITATOR SUPERVISOR Sign off status: Pending * Provider: Wendy ANDERSON MD, F.A.C.P, F.A.S.N. Date: 0 06/30/2025 Generated for Printing/Faxing/eTransmitting on: 11/11/2024 02:01 PM PRECIPITATOR SUPERVISOR
--- OUTSIDE RECORDS SUMMARY | 2025-07-28 12:00 | XMS_ITS ---
Author Organization [facility] Address [address] [place] [address] Care Team Providers Care Ict Analyst Name Role Phone JeanDianaCooper Unavailable [phone] Social History Sex Assigned At : Social History Observation Description Sex Assigned At Male Encounters Encounter Location Date Provider Diagnosis [place] [facility] [address]43 [facility] 15 [place] [address] 07/28/2025 Cooper Pena Chronic kidney disea se, stage 4 (severe) N18.4 ; Anemia, unspecified D64.9 ; Heart failure, unspecified I50.9 ; Renal osteodystrophy N25.0 ; Secondary hyperparathyroidism, not elsewhere classified E21.1 ; Vitamin D deficiency, unspecified E55.9 ; Essential hypertension I10 ; Hypothyroidism, unspecified E03.9 ; Acquired absence of kidney Z90.5 ; Sciatica, unspecified side M54.30 ; Glycosuria R81 ; Hypokalemia E87.6 and Cyst of kidney, acquired N28.1 Assessments Encounter Date Diagnosis (ICD Code) Assessment Notes Treatment Notes Treatment Clinical Notes Section Notes 07/28/2025 Chronic kidney disease, stage 4 (severe) (ICD-10 - N18.4) 07/28/2025 Anemia, unspecified (ICD-10 - D64.9) 07/28/2025 Heart failure, unspecified (ICD-10 - I50.9) 07/28/2025 Renal osteodystrophy (ICD-10 - N25.0) 07/28/2025 Secondary hyperparathyroidism , not elsewhere classified (ICD-10 - E21.1) 07/28/2025 Vitamin D deficiency, unspecified (ICD-10 - E55.9) 07/28/2025 Essential hypertension (ICD-10 - I10) 07/28/2025 Hypothyroidism, unspecified (ICD-10 - E03.9) 07/28/2025 Acquired absence of kidney (ICD-10 - Z90.5) 07/28/2025 Sciatica, unspecified side (ICD-10 - M54.30) 07/28/2025 Glycosuria (ICD-10 - R81) 07/28/2025 Hypokalemia (ICD-10 - E87.6) 07/28/2025 Cyst of kidney, acquired (ICD-10 - N28.1) Plan Of Treatment Next Appt Details Provider Name:Cooper Pena , 09/15/2025 05:30:00 PM, [address] [facility] [address], [address], Progress Notes * ZACK FONTENOTDOB: [birth year] (74 yo M)Acc No.[id number]:07/28/2025 Patient: ZACK DURAN Provider: Wendy ANDERSON MD, F.A.C.P, F.A.S.N. :1950 A ge:74 Y S ex:Male Date:07/28/2025 Address:[address] [place], [place] [id number] Subjective: * Chief Complaints: Objective: Assessment: * [...] R81 1 2. H ypokalemia - E87.6 1 3. C yst of kidney, acquired - N28.1 Plan: * Billing Information: * Visit Code: 38937 Office Visit, Est Pt., Level 5. * Procedure Codes: * Electronic signature of Azalea Pena MD on 09/11/2025 at 02:02 PM SUPERVISOR ROUGH END Sign off status: Pending * Provider: Wendy ANDERSON MD, F.A.C.P, F.A.S.N. Date: 0 07/28/2025 Generated for Printing/Faxing/eTransmitting on: 11/11/2024 02:02 PM SUPERVISOR ROUGH END
--- OUTSIDE RECORDS SUMMARY | 2025-09-11 14:01 | XMS_ITS | Clinical Summary ---
Author Organization [facility] [employer] Address [address] [place] [address] Care Team Providers Care Retail Support Manager Name Role Phone Unavailable Primary Care Provider Unavailabl e Source Comments [facility] [employer],non-owned Affiliates and Associated Physician Practices is amultiple site organization consisting of ambulatory clinics and hospital sitesin [place] and [place]. This disclosure is being madepursuant to the Care Everywhere program and may not contain all information available regarding this patient. 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
--- OUTSIDE RECORDS SUMMARY | 2025-09-11 14:02 | XMS_ITS | Clinical Summary ---
Author Organization [facility] Address [address] [place] [address] Care Team Providers Care Fishing Vessel Captain Name Role Phone Unavailable Primary Care Provider [...] 75+ series) 2024 COVID-19 Vaccine ( - 2024-2 6 season) 2025 Influenza Adult (#1) 2025 Hepatitis A Vaccines Aged Out No long er eligible based on patient's age to complete this topic Meningococcal B Vaccine Aged Out No l onger eligible based on patient's age to complete this topic Meningococcal Vaccine Aged Out No jose cory eligible based on patient's age to complete this topic RSV Immunizations Under 20 Months Aged Out No longer eligible based on patient's age to complete this topic
--- OUTSIDE RECORDS SUMMARY | 2025-09-11 14:02 | XMS_ITS | Patient Health Record ---
Author Organization [facility] Address [address] [place] [address] Care Team Providers Care Retail Customer Service Specialist Name Role Phone Cooper Pena Unavailable [phone] Reason For Referral No Information Medications Medication SIG (Take, Route, Fr equency, Duration) Notes Start Date End Date Status Allopurinol 300 MG 1 tablet Orally Once a day; Duration: 90 days 08/01/2025 07/27/2026 Active Allopurinol 300 MG 1 tablet Orally Once a day; Duration: 90 days 07/28/2025 07/23/2026 Active Calcitriol 0.25 MCG TAKE 1 CAPSULE BY NOÉ HERNANDEZ TWICE DAILY; Duration: 90 Active Social History Sex Assigned At : Social History Observation Description Sex Assigned At Male Problems Problem Type SNOMED Code ICD Code Onset Dates Problem Status W/U Status Risk Notes Problem Anemia (072685478) Anemia, unspecified (D64.9) Active confirmed Problem Hypothyroidism (13493235) Hypothyroidism, unspecified (E03.9) Active confirmed Problem Secondary hyperparathyroidism (54111002) Secondary hyperparathyroid ism, not elsewhere classified (E21.1) Active confirmed Problem Vitamin D deficiency (82436949) Vitamin D deficiency, unspecified (E55.9) Active confirmed Problem Hypokalemia (45099216) Hypokalemia (E87.6) Active confirmed Problem Heart failure (88965594) Heart failure, unspecified (I50.9) Active confirmed Problem Sciatica (36884274) Sciatica, unspecified side (M54.30) Active confirmed Problem Chronic kidney disease stage 4 (760787151) Chronic kidney disease, stage 4 (severe) (N18.4) Active confirmed Problem Renal osteodystrophy (32716149) Renal osteodystrophy (N25.0) Active confirmed Problem Glycosuria (91329059) Glycosuria (R81) Active c onfirmed Problem Absent kidney (236507466) Acquired absence of kidney (Z90.5) Active confirmed Problem Essential hypertension (99701045) Essential hypertension (I10) Active confirmed Encounters Encounter Location Date Provider Diagnosis [facility] [address] [address] 11/25/2024 Cooper Pena Chronic kidney disea se, stage 4 (severe) N18.4 ; Elevated prostate specific antigen (PSA) R97.20 ; Essential hypertension I10 ; Renal osteodystrophy N25.0 ; Secondary hyperparathyroidism, not elsewhere classified E21.1 ; Abnormal results of thyroid function studies R94.6 and Acquired absence of kidney Z90.5 [facility] [address] [address] 02/03/2025 Cooper Pena Chronic kidney disea se, stage 4 (severe) N18.4 ; Anemia, unspecified D64.9 ; Heart failure, unspecified I50.9 ; Renal osteodystrophy N25.0 ; Secondary hyperparathyroidism, not elsewhere classified E21.1 ; Vitamin D deficiency, unspecified E55.9 ; Essential hypertension I10 ; Hypothyroidism, unspecified E03.9 ; Acquired absence of kidney Z90.5 and Sciatica, unspecified side M54.30 [facility] [address] [place] [address] 05/05/2025 Cooper Pena Chronic kidney disea se, stage 4 (severe) N18.4 ; Anemia, unspecified D64.9 ; Heart failure, unspecified I50.9 ; Renal osteodystrophy N25.0 ; Secondary hyperparathyroidism, not elsewhere classified E21.1 ; Vitamin D deficiency, unspecified E55.9 ; Essential hypertension I10 ; Hypothyroidism, unspecified E03.9 ; Acquired absence of kidney Z90.5 and Sciatica, unspecified side M54.30 [facility] [address] [address] 06/30/2025 Cooper Pena Chronic kidney disea se, stage 4 (severe) N18.4 ; Anemia, unspecified D64.9 ; Heart failure, unspecified I50.9 ; Renal osteodystrophy N25.0 ; Secondary hyperparathyroidism, not elsewhere classified E21.1 ; Vitamin D deficiency, unspecified E55.9 ; Essential hypertension I10 ; Hypothyroidism, unspecified E03.9 ; Acquired absence of kidney Z90.5 ; Sciatica, unspecified side M54.30 ; Glycosuria R81 and Hypokalemia E87.6 [facility] [address] [place] [address] 07/28/2025 Cooper Pena Chronic kidney disea se, [...] E87.6 and Cyst of kidney, acquired N28.1 [facility] [address] [place] [address] 07/28/2025 Cooper Pena [facility] [address] [place] [address] 08/01/2025 Cooper [facility] [address] [place] [address] 08/01/2025 Cooper Pena Assessments Encounter Date Diagnosis (ICD [...] 07/28/2025 Anemia, unspecified (ICD-10 - D64.9) 07/28/2025 Chronic kidney disease, stage 4 (severe) (ICD-10 - N18.4) 07/28/2025 Heart failure, unspecified (ICD-10 - I50.9) 06/30/2025 Anemia, unspecified (ICD-10 - D64.9) 05/05/2025 Anemia, unspecified (ICD-10 - D64.9) 11/25/2024 Essential hypertension (ICD-10 - I10) 02/03/2025 Anemia, unspecified (ICD-10 - D64.9) 11/25/2024 Renal osteodystrophy (ICD-10 - N25.0) 02/03/2025 Heart failure, unspecified (ICD-10 - I50.9) 05/05/2025 Heart failure, unspecified (ICD-10 - I50.9) 07/28/2025 Renal osteodystrophy (ICD-10 - N25.0) 06/30/2025 Heart failure, unspecified (ICD-10 - I50.9) 06/30/2025 Renal osteodystrophy (ICD-10 - N25.0) 07/28/2025 Secondary hyperparathyroidism , not elsewhere classified (ICD-10 - E21.1) 05/05/2025 Renal osteodystrophy (ICD-10 - N25.0) 02/03/2025 Renal osteodystrophy (ICD-10 - N25.0) 11/25/2024 Secondary hyperparathyroidism , not elsewhere classified (ICD-10 - E21.1) 02/03/2025 Secondary hyperparathyroidism , not elsewhere classified (ICD-10 - E21.1) 11/25/2024 Abnormal results of thyroid function studies (ICD-10 - R94.6) 05/05/2025 Secondary hyperparathyroidism , not elsewhere classified (ICD-10 - E21.1) 07/28/2025 Vitamin D deficiency, unspecified (ICD-10 - E55.9) 06/30/2025 Secondary hyperparathyroidism , not elsewhere classified (ICD-10 - E21.1) 06/30/2025 Vitamin D deficiency, unspecified (ICD-10 - E55.9) 05/05/2025 Vitamin D deficiency, unspecified (ICD-10 - E55.9) 11/25/2024 Acquired absence of kidney (ICD-10 - Z90.5) 02/03/2025 Vitamin D deficiency, unspecified (ICD-10 - E55.9) 07/28/2025 Essential hypertension (ICD-10 - I10) 02/03/2025 Essential hypertension (ICD-10 - I10) 05/05/2025 Essential hypertension (ICD-10 - I10) 06/30/2025 Essential hypertension (ICD-10 - I10) 07/28/2025 Hypothyroidism, unspecified (ICD-10 - E03.9) 06/30/2025 Hypothyroidism, unspecified (ICD-10 - E03.9) 05/05/2025 Hypothyroidism, unspecified (ICD-10 - E03.9) 02/03/2025 Hypothyroidism, unspecified (ICD-10 - E03.9) 07/28/2025 Acquired absence of kidney (ICD-10 - Z90.5) 02/03/2025 Acquired absence of kidney (ICD-10 - Z90.5) 05/05/2025 Acquired absence of kidney (ICD-10 - Z90.5) 07/28/2025 Sciatica, unspecified side (ICD-10 - M54.30) 06/30/2025 Acquired absence of kidney (ICD-10 - Z90.5) 06/30/2025 Sciatica, unspecified side (ICD-10 - M54.30) 05/05/2025 Sciatica, unspecified side (ICD-10 - M54.30) 02/03/2025 Sciatica, unspecified side (ICD-10 - M54.30) 07/28/2025 Glycosuria (ICD-10 - R81) 06/30/2025 Glycosuria (ICD-10 - R81) 07/28/2025 Hypokalemia (ICD-10 - E87.6) 07/28/2025 Cyst of kidney, acquired (ICD-10 - N28.1) 06/30/2025 Hypokalemia (ICD-10 - E87.6) Plan Of Treatment Next Appt Details Provider Name:Cooper Pena , 09/15/2025 05:30:00 PM, [address], [place], [address],
[2025-09-11 14:27] LABS: Hematocrit 40.3 % (42.0-52.0); Hemoglobin 13.2 g/dL (14.0-18.0); Immature Granulocyte Percent A 0.7 % (0-0.5); Immature Platelet Fraction Pct 5.7 % (0.9-11.2); Lymphocytes Absolute Auto 1.85 K/mm3 (0.9-3.2); Mean Corpuscular HGB Conc 32.8 g/dl (32-36); Mean Corpuscular Hemoglobin 32.0 pg (26-34); Mean Corpuscular Volume 97.8 fl (80-100); Nucleated Red Blood Cells Absolute Auto 0.000 K/mm3 (0.0-0.012); Nucleated Red Blood Cells Perc 0.0 % (0.0-0.2); Platelet Count Result 132 k/mm3 (150-375); Red Blood Count 4.12 M/mm3 (4.6-6.20); White Blood Count 7.1 K/mm3 (4.5-10.0)
[2025-09-11 14:30] LABS: Add Urine Microscopic? NO; Appearance Urine Clear (Clear); Glucose Urine UA 3+ mg/dL (Negative); Leukocyte Esterase Ur Negative LEU/UL (Negative); Nitrate Urine Negative (Negative); Specific Grav Ur 1.015 (1.001-1.035)
[2025-09-11 14:45] LABS: Alanine Aminotransferase 13 U/L (6-50); Albumin Level 3.9 g/dL (3.5-5.1); Alkaline Phosphatase 55 U/L (38-126); Anion Gap 8 mmol/L (4-12); Aspartate Amino Transferase 15 U/L (17-59); Bilirubin,Total 0.9 mg/dL (0.2-1.3); Blood Urea Nitrogen 32 mg/dL (9-20); Calcium 9.7 mg/dL (8.4-10.2); Carbon Dioxide 34 mmol/L (22-30); Chloride 95 mmol/L (98-107); Estimated Glomerular Filt Rate 24; Glucose 105 mg/dL (65-110); Potassium 3.4 mmol/L (3.4-5.0); Sodium 137 mmol/L (137-145); Total Protein 6.9 g/dL (6.3-8.2); Uric Acid 5.1 mg/dL (3.5-8.5)
[2025-09-11 14:52] LABS: Total Protein Urine Random 10 mg/dL; Ur Ttl Prot Creatinine Ratio 0.08 mg/mg (0-0.20)
[2025-09-11 14:59] LABS: MALB Creatinine Ratio 6.0 mg/g (0-30)
[2025-09-11 15:46] LABS: Parathyroid Intact < 14.5 pg/mL (14.5-75.2)
[2025-09-12 12:08] LABS: Chloride, Urine 72 mmol/L (Not Estab.)
[2025-09-17 16:08] LABS: Osmolality, Urine 426 mOsmol/kg (.)
== END 2025-09-11 12:54 | disposition home or self-care (01) ==
LOC: ANHLAB 12:56
PROVIDERS: PCP Internal Medicine; Visit Provider Specialist
DX: N18.4 Chronic kidney disease, stage 4 (severe) (principal); E21.3 Hyperparathyroidism, unspecified; E55.9 Vitamin D deficiency, unspecified
CPT/HCPCS: 36415; 80053; 81003; 82043; 82306; 82436; 82570; 83935; 83970; 84133; 84156; 84300; 84550; 85025; 85055

== ENCOUNTER 2025-10-19 13:17 | Outpatient (CLI) | payer MEDICARE, MEDICAID, SELFPAY ==
[2025-10-19 14:04] LABS: Hematocrit 40.7 % (42.0-52.0); Hemoglobin 13.3 g/dL (14.0-18.0); Immature Granulocyte Percent A 0.5 % (0-0.5); Lymphocytes Absolute Auto 2.23 K/mm3 (0.9-3.2); Mean Corpuscular HGB Conc 32.7 g/dl (32-36); Mean Corpuscular Hemoglobin 32.2 pg (26-34); Mean Corpuscular Volume 98.5 fl (80-100); Nucleated Red Blood Cells Absolute Auto 0.000 K/mm3 (0.0-0.012); Nucleated Red Blood Cells Perc 0.0 % (0.0-0.2); Platelet Count Result 171 k/mm3 (150-375); Red Blood Count 4.13 M/mm3 (4.6-6.20); White Blood Count 7.6 K/mm3 (4.5-10.0)
[2025-10-19 14:07] LABS: Add Urine Microscopic? NO; Appearance Urine Clear (Clear); Glucose Urine UA 3+ mg/dL (Negative); Leukocyte Esterase Ur Negative LEU/UL (Negative); Nitrate Urine Negative (Negative); Specific Grav Ur 1.017 (1.001-1.035)
[2025-10-19 14:20] LABS: Alanine Aminotransferase 14 U/L (6-50); Albumin Level 4.2 g/dL (3.5-5.1); Alkaline Phosphatase 66 U/L (38-126); Anion Gap 3 mmol/L (4-12); Aspartate Amino Transferase 17 U/L (17-59); Bilirubin,Total 0.8 mg/dL (0.2-1.3); Blood Urea Nitrogen 40 mg/dL (9-20); Calcium 9.7 mg/dL (8.4-10.2); Carbon Dioxide 35 mmol/L (22-30); Chloride 99 mmol/L (98-107); Estimated Glomerular Filt Rate 25; Glucose 89 mg/dL (65-110); Magnesium 1.3 mg/dL (1.6-2.3); Potassium 3.7 mmol/L (3.4-5.0); Sodium 137 mmol/L (137-145); Total Protein 7.4 g/dL (6.3-8.2); Uric Acid 5.8 mg/dL (3.5-8.5)
[2025-10-19 15:59] LABS: Total Protein Urine Random 11 mg/dL; Ur Ttl Prot Creatinine Ratio 0.08 mg/mg (0-0.20)
[2025-10-19 16:03] LABS: MALB Creatinine Ratio 5.9 mg/g (0-30)
[2025-10-19 16:10] LABS: Parathyroid Intact 28.4 pg/mL (14.5-75.2)
[2025-10-20 07:09] LABS: eGFR 21 (>59)
== END 2025-10-19 13:18 | disposition home or self-care (01) ==
PROVIDERS: PCP Internal Medicine; Visit Provider Specialist
DX: I12.9 Hypertensive chronic kidney disease with stage 1 through stage 4 chronic kidney disease, or unspecified chronic kidney disease (principal); E11.22 Type 2 diabetes mellitus with diabetic chronic kidney disease; N18.5 Chronic kidney disease, stage 5; Z79.4 Long term (current) use of insulin; R60.9 Edema, unspecified; R94.6 Abnormal results of thyroid function studies; E83.39 Other disorders of phosphorus metabolism; R82.90 Unspecified abnormal findings in urine
CPT/HCPCS: 36415; 80053; 81003; 82043; 82306; 82570; 82610; 83735; 83970; 84156; 84550; 85025; 85652